=== PATIENT | female | born 1940 | race Caucasian/White ===

== ENCOUNTER → 2016-11-15 | Outpatient (CLI) | payer MEDICARE, BC ==
[~2016-11-15] MED LIST: AMBI5TAB PO; CALC0.25 PO; CALCTAB92 PO; CARV3.12 PO; CYMB30CA PO; DEMA10TA PO; ERGO50000 PO; ESTR.1T TD; GABA600T PO; LIDO5DIS35 TD; LISI2.5T55 PO; MVI PO; SIMV10TA PO; ULTR50TA PO; VITATAB11 PO; [UNRECOGNIZED DRUG - OTHER] PO
[2016-11-15 16:16] LABS: HEMATOCRIT 36.9 % (35.0-46.0); MEAN CELL VOLUME 85.8 FL (80.0-100.0); MEAN CORPUSCULAR HEMOGLOBIN 27.3 PG (27.0-34.0); MEAN CORPUSCULAR HGB CONC 31.8 % (32.0-36.0); PLATELET COUNT 245 TH/MM3 (150-450); RED CELL DISTRIBUTION WIDTH 15.8 % (11.6-17.2); REVIEW FLAG FINAL; WHITE BLOOD COUNT 7.6 TH/MM3 (4.0-11.0)
[2016-11-15 16:19] LABS: BACTERIA, URINE RARE /hpf; BLOOD, URINE NEG (NEG); GLUCOSE,URINE NEG (NEG); KETONE, URINE NEG (NEG); MUCUS URINE FEW /lpf (OCC); NITRITE,URINE NEG (NEG); SQUAMOUS EPITHELIAL CELL URINE 1 /hpf (0-5); URINE COLOR LIGHT-YELLOW (YELLW/STRAW)
[2016-11-15 16:26] LABS: BICARBONATE 27.4 MEQ/L (21.0-32.0); POTASSIUM 4.1 MEQ/L (3.5-5.1)
== END ==
LOC: PLAB 11:19
PROVIDERS: ATTEND Internal Medicine Nephrology
DX: E55.9 Vitamin D deficiency, unspecified (principal); N18.2 Chronic kidney disease, stage 2 (mild)
CPT/HCPCS: 36415; 80069; 81001; 82306; 82570; 83970; 84156; 85027

== ENCOUNTER → 2017-01-17 | Outpatient (CLI) | payer MEDICARE, BC ==
[2017-01-17 13:23] LABS: ANION GAP 9 MEQ/L (5-15); BICARBONATE 24.4 MEQ/L (21.0-32.0); BLOOD UREA NITROGEN 27 MG/DL (7-18); CHLORIDE 111 MEQ/L (98-107); FERRITIN 14 NG/ML (8-252); GLOMERULAR FILTRATION RATE 55 ML/MIN (>89); POTASSIUM 3.6 MEQ/L (3.5-5.1); SODIUM (NA) 144 MEQ/L (136-145); TRANSFERRIN IRON PROFILE 313 MG/DL (200-360); URIC ACID 8.8 MG/DL (2.6-6.0)
[2017-01-17 17:30] LABS: HEMOGLOBIN A1a 1.4 %; HEMOGLOBIN Ao 84.5 %; HEMOGLOBIN LA1C 2.5 %; HEMOGLOBIN P3 5.7 %
== END ==
LOC: PLAB 08:04
DX: E83.51 Hypocalcemia (principal); Z86.39 Personal history of other endocrine, nutritional and metabolic disease
CPT/HCPCS: 36415; 80069; 82306; 82607; 82728; 83036; 83540; 83550; 83970; 84550

== ENCOUNTER 2017-04-26 08:21 | Emergency (ER) | payer MEDICARE, BC ==
[~2017-04-26] VITALS: Ht 162.6 cm; Wt 61.5 kg
[2017-04-26 08:28] VITALS: BP 148/80; PULSE 74; RESP 16; TEMP 98.1; O2SAT 98
[2017-04-26] MEDS ORDERED: GABA600T PO (08:47)
[2017-04-26] MEDS ORDERED: CARV3.12 PO (08:47)
[2017-04-26] MEDS ORDERED: ZOCO10TA PO (08:47)
[2017-04-26] MEDS ORDERED: TORS20TA PO (08:47)
[2017-04-26] MEDS ORDERED: VENL225T PO (08:47)
[2017-04-26] MEDS ORDERED: CITRTAB PO (08:47)
[2017-04-26] MEDS ORDERED: LISI2.5T3 PO (08:47)
[2017-04-26] MEDS ORDERED: ESTR.025T TOPICAL (08:47)
[2017-04-26] MEDS ORDERED: AMBI5TAB PO (08:47)
[2017-04-26] MEDS ORDERED: [UNRECOGNIZED DRUG - OTHER] PO (08:47)
[2017-04-26] MEDS ORDERED: TRAM50TA PO (08:47)
[2017-04-26] MEDS ORDERED: MIRA50TA PO (08:47)
--- NOTE | 2017-04-26 08:59 | PD ---
HPI Chief Complaint: Injury Time Seen by Provider: 08:41 Travel History International Travel<30 days: No Contact w/Intl Traveler<30days: [place] of Country Traveled to: [place] Traveled to known affect area: Yes History of Present Illness HPI Patient 76-year-old female presents with left lower extremity swelling, knee pain, ankle pain for the past 2 days. Patient states that she fell down the stairs in [place] and bent her left leg behind her, she states that she's been having ankle pain and foot pain and knee pain ever since this event. She has been ambulating albeit very gingerly. She also is on been on a long plane flight from [place]. Denies any shortness of breath, she states that her legs have been swelling since the plane flight and she was picked up this morning. Denies any fever denies any chest pain denies any shortness of breath denies any other injuries denies any neck pain or headache. PFSH Past Medical History Anemia: Yes Anxiety: No Depression: Yes Heart Rhythm Problems: No Cardiovascular Problems: Yes High Cholesterol: Yes Chest Pain: No Congestive Heart Failure: No Cerebrovascular Accident: No Diminished Hearing: Yes ([place], HEARING AIDS) Endocrine: No GERD: Yes Genitourinary: Yes (necrosis and urinary incontinence) Hiatal Hernia: Yes Herniated Disk: Yes Hypertension: Yes Musculoskeletal: Yes Neurologic: Yes (neuropathy) Psychiatric: Yes Reproductive: No Respiratory: No Migraines: No Myocardial Infarction: No Renal Failure: Yes Seizures: No ?: Not : 4 Para: 4 Past Surgical History Abdominal Surgery: Yes (GASTRIC DISTAL BYPASS 1991, HERNIA 2011) Body Medical Devices: titanium rods in head, layton in abd. Cholecystectomy: Yes Ear Surgery: No Endocrine Surgery: No Eye Surgery: Yes (BILAT CATARACTS) Genitourinary Surgery: Yes (bladder sling) Hysterectomy: Yes Neurologic Surgery: Yes (CRANIOTOTOMY 2013 WITH TITANIUM) Oral Surgery: Yes Tonsillectomy: Yes Other Surgery: Yes (L5-S1, R KNEE TORN MENISCUS) Family History Family Hypercholesterolemia: Yes Social History Alcohol Use: Yes (very rarely) Tobacco Use: No Substance Use: No Allergies-Medications (Allergen,Severity, Reaction): Coded Allergies: Celebrex (Unverified Allergy, Severe, RENAL FAILURE, 04/26/17) *MDRO Multi-Drug Resistant Organism (Unverified Allergy, Unknown, 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 Actonel (Verified Allergy, Unknown, 04/26/17) Pristiq (Verified Allergy, Unknown, 04/26/17) Reported Meds & Prescriptions Reported Meds & Active Scripts Active Reported Myrbetriq (Mirabegron) 50 Mg Tab 50 Mg PO DAILY Zocor (Simvastatin) 10 Mg Tab 10 Mg PO DAILY Tramadol (Tramadol HCl) 50 Mg Tab 50 Mg PO Q8H PRN Torsemide 20 Mg Tab 20 Mg PO DAILY Carvedilol 3.125 Mg Tab 3.125 Mg PO BID Lisinopril 2.5 Mg Tab 2.5 Mg PO DAILY Venlafaxine ER 24 HR (Venlafaxine HCl) 225 Mg Tab 225 Mg PO DAILY Climara Patch 168 HR (Estradiol) 0.025 Mg/24 Hr Patch 1 Patch TOPICAL Q7D Remove old patch and discard when placing a new patch. Ambien (Zolpidem Tartrate) 5 Mg Tab 5 Mg PO HS PRN Gabapentin 600 Mg Tab 600 Mg PO TID Citracal + Bone Density Tablet (Calcium Crb,Cit/D3/Min34/Luis) 1 Each Tablet 3 Tab PO DAILY Tricitrates Liq (Potassium Citrate-Sod Citrate-Citric Acid Liq) 550-500-334 Mg/ 5 Ml Soln 10 Ml PO DAILY Review of Systems Except as stated in HPI: all other systems reviewed are Neg Physical Exam Narrative GENERAL: Well-developed well-nourished no apparent distress. SKIN: Focused skin assessment warm/dry. HEAD: Atraumatic. Normocephalic. EYES: Pupils equal and round. No scleral icterus. No injection or drainage. ENT: No nasal bleeding or discharge. Mucous membranes pink and moist. NECK: Trachea midline. No JVD. CARDIOVASCULAR: Regular rate and rhythm. No murmur appreciated. RESPIRATORY: No accessory muscle use. Clear to auscultation. Breath sounds equal bilaterally. GASTROINTESTINAL: Abdomen soft, non-tender, nondistended. Hepatic and splenic margins not palpable. MUSCULOSKELETAL: No obvious deformities. No clubbing. No cyanosis. Patient has some pitting edema bilateral lower extremities, worse on the left on the right. From the knees down. Some minimal tenderness over the dorsum of the foot over the first and second metatarsals, there is also some tenderness over the medial malleoli on the left, no tenderness over the knee. Nose midline cervical thoracic or lumbar tenderness. Pelvis stable. NEUROLOGICAL: Awake and alert. No obvious cranial nerve deficits. Motor grossly within normal limits. Normal speech. PSYCHIATRIC: Appropriate mood and affect; insight and judgment normal. Data Data Last Documented VS Vital Signs Date Time Temp Pulse Resp B/P Pulse Ox O2 Delivery O2 Flow Rate FiO2 04/26/17 08:28 98.1 74 16 148/80 98 Orders Us Leg Venous Doppler Bilat (04/26/17 08:41) Foot, Complete ([id number]) (04/26/17 ) Knee, Complete (4vws) (04/26/17 ) Acetaminophen (Tylenol) (04/26/17 10:00) MDM Medical Decision Making Medical Screen Exam Complete: Yes Emergency Medical Condition: Yes Differential Diagnosis Foot pain, ankle pain, knee pain, DVT. Narrative Course Patient roomed emergency department, given Tylenol, DVT studies of both lower extremities are negative, x-rays are negative other than small joint effusion. No indication for imaging of her head or C-spine or any other joint. The patient is ambulatory in emergency department, was placed in an Franc wrap for comfort. Recommended rice therapy and follow-up with her primary care physician. She was grateful, stable for discharge. Diagnosis Primary Impression: Knee sprain Additional Impressions: Ankle sprain Foot contusion Patient Instructions: General Instructions, RICE Therapy (GEN) Disposition: 01 DISCHARGE HOME Condition: Stable Braxton Padgett MD Apr 26, 2017 08:59
--- NOTE | 2017-04-26 09:15 | RADRPT ---
EXAM DATE/TIME: 04/26/2017 08:58 [facility] COMPARISON: No previous studies available for comparison. INDICATIONS : Fall, left posterior knee pain. MEDICAL HISTORY : None. SURGICAL HISTORY : None. ENCOUNTER: Initial ACUITY: 2 days PAIN SCORE: 10/10 LOCATION: Left posterior knee FINDINGS: Four view examination of the left knee demonstrates no evidence of fracture or dislocation. Bony min eralization is normal. The articular surfaces are intact. There is a small right knee effusion. CONCLUSION: Unremarkable examination of the left knee except for small joint effusion. Ezekiel Issa MD on April 26, 2017 at 9:13 Board Certified Radiologist. This report was verified electronically.
--- NOTE | 2017-04-26 09:16 | RADRPT ---
EXAM DATE/TIME: 04/26/2017 09:00 [facility] COMPARISON: No previous studies available for comparison. INDICATIONS : Fall, left foot pain and swelling. MEDICAL HISTORY : None. SURGICAL HISTORY : None. ENCOUNTER: Initial ACUITY: 2 days PAIN SCORE: 10/10 LOCATION: Left enitre foot FINDINGS: Three view examination of the left foot demonstrates no soft tissue swelling, dislocation, or fractur e. The tarsal bones appear intact. The interphalangeal and metatarsophalangeal joints are intact. The calcaneus is intact. Bony mineralization is normal. CONCLUSION: Unremarkable examination of the left foot. Ezekiel Issa MD on April 26, 2017 at 9:14 Board Certified Radiologist. This report was verified electronically.
--- NOTE | 2017-04-26 09:50 | RADRPT ---
EXAM DATE/TIME: 04/26/2017 09:27 [facility] COMPARISON: No previous studies available for comparison. INDICATIONS : Bilateral leg swelling and pain. Fall two days ago. Long flight last night. MEDICAL HISTORY : Hypercholesterolemia. Hypertension. Gastroesophageal reflux disease. Hiatal hernia. Renal failure. Os teoporosis. Herniated disks. Anemia. Measles. SURGICAL HISTORY : Tonsillectomy.Hysterectomy. Rotator cuff, right.Craniotomy. Gastric distal bypass. Left meniscus repa ir. ENCOUNTER: Initial ACUITY: 2 day PAIN SCORE: 10/10 LOCATION: Bilateral leg. TECHNIQUE: Venous ultrasound of the left and right leg was performed from the inguinal ligament to the proximal calf. Real-time, color Doppler and spectral tracing, compression and augmentation techniques were us ed. FINDINGS: RIGHT LEG: There is normal compressibility of the deep venous system from the inguinal region to the proximal ca lf. No echogenic clot is seen in the lumen of the common femoral, femoral, popliteal, and posterior tibial veins. There is a normal response of the venous system to proximal and distal augmentation an d respiration. LEFT LEG: There is normal compressibility of the deep venous system from the inguinal region to the proximal ca lf. No echogenic clot is seen in the lumen of the common femoral, femoral, popliteal, and posterior tibial veins. There is a normal response of the venous system to proximal and distal augmentation an d respiration. CONCLUSION: Normal examination. Ezekiel Issa MD on April 26, 2017 at 9:49 Board Certified Radiologist. This report was verified electronically.
[2017-04-26] MEDS ORDERED: ACETAMINOPHEN 500 MG CPLT PO ONE (10:00)
== END 2017-04-26 10:15 | disposition home or self-care (01) ==
LOC: PHEFT 08:21
DX: S83.92XA Sprain of unspecified site of left knee, initial encounter (principal); S93.402A Sprain of unspecified ligament of left ankle, initial encounter; S90.32XA Contusion of left foot, initial encounter; I10 Essential (primary) hypertension; W10.9XXA Fall (on) (from) unspecified stairs and steps, initial encounter
CPT/HCPCS: 73564; 73630; 93970

== ENCOUNTER 2017-04-28 07:34 | Inpatient (IN) | payer MEDICARE, BC ==
[~2017-04-28 07:34] MED LIST changes: -CALC0.25 PO; -CALCTAB92 PO; +CITRTAB PO; -CYMB30CA PO; -DEMA10TA PO; -ERGO50000 PO; +ESTR.025T TOPICAL; -ESTR.1T TD; -LIDO5DIS35 TD; +LISI2.5T3 PO; -LISI2.5T55 PO; +MIRA50TA PO; -MVI PO; -SIMV10TA PO; +TORS20TA PO; +TRAM50TA PO; -ULTR50TA PO; +VENL225T PO; -VITATAB11 PO; +ZOCO10TA PO; +[UNRECOGNIZED DRUG - OTHER] PO; -[UNRECOGNIZED DRUG - OTHER] PO
[2017-04-28 07:40] VITALS: BP 116/60; PULSE 82; RESP 20; TEMP 98.7; O2SAT 95
[2017-04-28 08:27] LABS: AUTOMATED NEUTROPHIL # 7.5 TH/MM3 (1.8-7.7); BASOPHIL # 0.1 TH/MM3 (0-0.2); BASOPHIL % 0.6 % (0.0-2.0); EOSINOPHIL # 0.1 TH/MM3 (0-0.4); EOSINOPHIL % 0.8 % (0.0-4.0); HEMATOCRIT 33.6 % (35.0-46.0); HEMO FLAGS DIFF FINAL; LYMPH % 13.7 % (9.0-44.0); LYMPHOCYTE # 1.4 TH/MM3 (1.0-4.8); MEAN CORPUSCULAR HEMOGLOBIN 27.7 PG (27.0-34.0); MEAN CORPUSCULAR HGB CONC 31.1 % (32.0-36.0); MONO % 10.9 % (0.0-8.0); PLATELET COUNT 207 TH/MM3 (150-450); RED BLOOD COUNT 3.77 MIL/MM3 (4.00-5.30); RED CELL DISTRIBUTION WIDTH 15.2 % (11.6-17.2); WHITE BLOOD COUNT 10.1 TH/MM3 (4.0-11.0)
[2017-04-28 08:36] LABS: INTERNATIONAL NORMALIZED RATIO 0.9 RATIO; PROTHROMBIN TIME - PATIENT 10.1 SEC (9.8-11.6)
--- NOTE | 2017-04-28 08:36 | RADRPT ---
EXAM DATE/TIME: 04/28/2017 08:20 [facility] COMPARISON: No previous studies available for comparison. INDICATIONS : Trauma, fall this morning. RADIATION DOSE: 27.29 CTDIvol (mGy) MEDICAL HISTORY : Hypertension. SURGICAL HISTORY : Craniotomy. Meningioma removed ENCOUNTER: Initial ACUITY: 1 day PAIN SCALE: 0/10 LOCATION: cranial TECHNIQUE: Multiple contiguous axial images were obtained of the head. Using automated exposure control and adj ustment of the mA and/or kV according to patient size, radiation dose was kept as low as reasonably a chievable to obtain optimal diagnostic quality images. DICOM format image data is available electro nically for review and comparison. FINDINGS: CEREBRUM: Encephalomalacia left frontal lobe. The ventricles are normal for age. No evidence of midline shift, mass lesion, hemorrhage or acute infarction. No extra-axial fluid collections are seen. POSTERIOR FOSSA: The cerebellum and brainstem are intact. The 4th ventricle is midline. The cerebellopontine angle i s unremarkable. EXTRACRANIAL: The visualized portion of the orbits is intact. SKULL: The calvaria is intact. Status post craniotomy on the left. No evidence of skull fracture. CONCLUSION: 1. Encephalomalacia left frontal lobe and previous craniotomy. 2. No acute intracranial abnormality. Martin Alvarado MD on April 28, 2017 at 8:33 Board Certified Radiologist. This report was verified electronically.
[2017-04-28 08:37] LABS: APTT (PATIENT) 23.3 SEC (24.3-30.1)
--- NOTE | 2017-04-28 08:44 | PD ---
HPI Chief Complaint: Injury Time Seen by Provider: 07:54 Travel History International Travel<30 days: No Contact w/Intl Traveler<30days: No Traveled to known affect area: No History of Present Illness HPI 76yo F with PMH of peripheral neuropathy presents to the ED with c/o left wrist pain s/p mechanical fall today. 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 However, she lost balance and fell and hit her left head on the dresser as well as her left wrist. Denies any LOC. Denies any headache, anticoagulation, chest pain, sob, n/v, abdominal pain, focal weakness or numbness. 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 Cholecystectomy: Yes Ear Surgery: No Endocrine Surgery: No Eye Surgery: Yes (BILAT CATARACTS) Genitourinary Surgery: Yes (bladder sling) Hysterectomy: Yes Neurologic Surgery: Yes (CRANIOTOTOMY 2013 WITH TITANIUM) Oral Surgery: Yes Tonsillectomy: Yes Other Surgery: Yes (L5-S1, R KNEE TORN MENISCUS) Family History Family Hypercholesterolemia: Yes Social History Alcohol Use: Yes (very rarely) Tobacco Use: No Substance Use: No Allergies-Medications (Allergen,Severity, Reaction): Coded Allergies: Celebrex (Unverified Allergy, Severe, RENAL FAILURE, 04/26/17) *MDRO Multi-Drug Resistant Organism (Unverified Allergy, Unknown, 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 Actonel (Verified Allergy, Unknown, 04/26/17) Pristiq (Verified Allergy, Unknown, 04/26/17) Reported Meds & Prescriptions Reported Meds & Active Scripts Active Reported Centrum Silver Adult 50+ (Multiple Vitamins W/ Minerals) 1 Tab Tab 1 Tab PO DAILY B Complex (B-Complex W/ Folic Acid) 1 Tab 1 Tab PO DAILY Selenium (Selenomethionine) 200 Mcg Tablet Unknown Dose PO DAILY Zinc (Zinc Gluconate) 50 Mg Tab Unknown Dose PO DAILY Ergocalciferol 50,000 Unit Cap 150,000 Units PO DAILY Myrbetriq (Mirabegron) 50 Mg Tab 50 Mg PO DAILY Zocor (Simvastatin) 10 Mg Tab 10 Mg PO DAILY Tramadol (Tramadol HCl) 50 Mg Tab 100 Mg PO BID Torsemide 20 Mg Tab 20 Mg PO DAILY Carvedilol 3.125 Mg Tab 3.125 Mg PO BID Lisinopril 2.5 Mg Tab 2.5 Mg PO DAILY Venlafaxine ER 24 HR (Venlafaxine HCl) 225 Mg Tab 225 Mg PO DAILY Climara Patch 168 HR (Estradiol) 0.025 Mg/24 Hr Patch 1 Patch TOPICAL Q7D Remove old patch and discard when placing a new patch. Ambien (Zolpidem Tartrate) 5 Mg Tab 5 Mg PO HS PRN Gabapentin 600 Mg Tab 600 Mg PO TID Citracal + Bone Density Tablet (Calcium Crb,Cit/D3/Min34/Luis) 1 Each Tablet 1 Tab PO TID Tricitrates Liq (Potassium Citrate-Sod Citrate-Citric Acid Liq) 550-500-334 Mg/ 5 Ml Soln 10 Ml PO DAILY Review of Systems Except as stated in HPI: all other systems reviewed are Neg Physical Exam Narrative GENERAL: 76yo F in mild distress. SKIN: Focused skin assessment warm/dry. HEAD: +Ecchymoses and swelling in left eyebrow. EYES: Pupils equal and round. No scleral icterus. No injection or drainage. ENT: No nasal bleeding or discharge. Mucous membranes pink and moist. NECK: Trachea midline. No JVD. CARDIOVASCULAR: Regular rate and rhythm. No murmur appreciated. RESPIRATORY: No accessory muscle use. Clear to auscultation. Breath sounds equal bilaterally. GASTROINTESTINAL: Abdomen soft, non-tender, nondistended. MUSCULOSKELETAL: Left wrist:+Swelling distal radius on dorsal aspect. Radial pulse 2+. Sensation intact. Able to move all digits. NEUROLOGICAL: Awake and alert. No obvious cranial nerve deficits. Motor grossly within normal limits. Normal speech. PSYCHIATRIC: Appropriate mood and affect; insight and judgment normal. Data Data Last Documented VS Vital Signs Date Time Temp Pulse Resp B/P Pulse Ox O2 Delivery O2 Flow Rate FiO2 04/28/17 11:15 100 Nasal Cannula 3.00 04/28/17 10:45 69 14 138/70 04/28/17 07:[address] Brain W/O Iv Contrast(Rout) (04/28/17 ) Ct Cerv Spine W/O Contrast (04/28/17 ) Ct Facial Bones W/O Iv Cont (04/28/17 ) Wrist, Limited (Ap&Lat) (04/28/17 ) Hand, Limited (2vws) (04/28/17 ) Complete Blood Count With Diff (04/28/17 08:01) Basic Metabolic Panel (Bmp) (04/28/17 08:01) Prothrombin Time / Inr (Pt) (04/28/17 08:01) Act Partial Throm Time (Ptt) (04/28/17 08:01) Type And Screen (04/28/17 08:01) Morphine Inj (Morphine Inj) (04/28/17 08:45) Propofol 500 Mg/50 Ml Inj (Diprivan 500 (04/28/17 09:45) AGID (04/28/17 08:13) Red Blood Cells (Rbc) (04/28/17 08:13) Wrist, Limited (Ap&Lat) (04/28/17 ) Fiberglass Sugartong Sp Ad Arm (04/28/17 ) Sling Cradle Arm (04/28/17 ) Admit To Inpatient (04/28/17 ) Vital Signs (Adult) Q4H (04/28/17 12:47) Activity Oob With Assistance (04/28/17 12:47) Diet Regular Basic (04/28/17 Lunch) Lactated Ringer's 1000 Ml Inj (Lr 1000 M (04/28/17 13:00) Sodium Chloride 0.9% Flush (Ns Flush) (04/28/17 13:00) Sodium Chloride 0.9% Flush (Ns Flush) (04/28/17 21:00) Ondansetron Inj (Zofran Inj) (04/28/17 13:00) Basic Metabolic Panel (Bmp) (04/29/17 06:00) Complete Blood Count With Diff (04/29/17 06:00) Heparin Inj (Heparin Inj) (04/30/17 09:00) Naloxone Inj (Narcan Inj) (04/28/17 13:00) Docusate Sodium-Senna (Sara-Colace) (04/28/17 21:00) Magnesium Hydroxide Liq (Milk Of Magnesi (04/28/17 13:00) Sennosides (Senokot) (04/28/17 13:00) Bisacodyl Supp (Dulcolax Supp) (04/28/17 13:00) Lactulose Liq (Lactulose Liq) (04/28/17 13:00) Inpatient Certification (04/28/17 ) Consult Orthopedic (04/28/17 ) Morphine Inj (Morphine Inj) (04/28/17 13:00) Admit Order (Ed Use Only) (04/28/17 12:50) Labs Laboratory Tests Test 04/28/17 04/28/17 04/28/17 08:13 09:51 10:39 White Blood Count 10.1 TH/MM3 Red Blood Count 3.77 MIL/MM3 Hemoglobin 10.5 GM/DL Hematocrit 33.6 % Mean Corpuscular Volume 89.0 FL Mean Corpuscular Hemoglobin 27.7 PG Mean Corpuscular Hemoglobin 31.1 % Concent Red Cell Distribution Width 15.2 % Platelet Count 207 TH/MM3 Mean Platelet Volume 9.4 FL Neutrophils (%) (Auto) 74.0 % Lymphocytes (%) (Auto) 13.7 % Monocytes (%) (Auto) 10.9 % Eosinophils (%) (Auto) 0.8 % Basophils (%) (Auto) 0.6 % Neutrophils # (Auto) 7.5 TH/MM3 Lymphocytes # (Auto) 1.4 TH/MM3 Monocytes # (Auto) 1.1 TH/MM3 Eosinophils # (Auto) 0.1 TH/MM3 Basophils # (Auto) 0.1 TH/MM3 CBC Comment DIFF FINAL Differential Comment Prothrombin Time 10.1 SEC Prothromb Time International 0.9 RATIO Ratio Activated Partial 23.3 SEC Thromboplast Time Sodium Level 140 MEQ/L Potassium Level 4.1 MEQ/L Chloride Level 107 MEQ/L Carbon Dioxide Level 24.8 MEQ/L Anion Gap 8 MEQ/L Blood Urea Nitrogen 23 MG/DL Creatinine 1.17 MG/DL Estimat Glomerular Filtration 45 ML/MIN Rate Random Glucose 124 MG/DL Calcium Level 8.3 MG/DL Blood Type A POSITIVE A POSITIVE Antibody Screen POSITIVE Antigen Identification E Antigen - NEGATIVE Crossmatch Leukocyte-Reduced Red Blood Cells Blood Bank Comment Antibody Identification Anti-E MDM Medical Decision Making Medical Screen Exam Complete: Yes Emergency Medical Condition: Yes Differential Diagnosis Fracture vs. contusion vs. dislocation Narrative Course 76yo F with left wrist pain s/p mechanical fall today. Pt had recently had left ankle sprain s/p work up at [facility] with negative xray and US. Pt denies any LOC. Has ecchymoses in left eyebrow. CT brain showed previous craniotomy. No acute intracranial abnormality. CT cspine showed degenerative changes. CT facial: left periorbital/facial soft tissue swelling. No facial fractures. No fracture. Xray left hand and wrist showed distal radius and ulnar fracture with posterior displacement. Reduction performed under procedural sedation. Post reduction xray showed improvement in alignment of radial and ulna fractures. Discussed with irrigationist designer orthopedic surgeon Dr. Medrano and he recommends admission to medicine and Dr. Lujan will take her to surgery tomorrow. Discussed with hospitalist and accepted to their service. Orthopedic consult placed. Procedures Procedure Narrative After the risks and benefits were discussed the following procedure was performed: MODERATE SEDATION: The patient was placed on a cafeteria monitor and pulse oximetry. An ambu bag and suction was immediately available at bedside. The patient was monitored by the nurse. Oxygen saturation , heart rate and blood pressure were monitored. Procedural sedation was acheived using 50mg of propofol. The patient was observed until awake and alert. Procedural Sedation time in attendance was 25 minutes. Diagnosis Primary Impression: Distal radius fracture, left Qualified Code: S52.502A - Closed fracture of distal end of left radius, unspecified fracture morphology, initial encounter Admitting Information Admitting Physician Requests: Admit Scripts Hydrocodone-Acetaminophen ([place])7.5-325 mg Tab1 Tab PO Q4H PRN (PAIN) #50 TAB Ref 0 Prov:Genaro Lujan MD 04/29/17 Hydrocodone-Acetaminophen 7.5-325 mg Tab1 Tab PO Q4H #60 TAB Ref 0 Prov:Gilberto Arce 04/29/17 Tonia Moon DO Apr 28, 2017 08:44
[2017-04-28] MEDS ORDERED: MORPHINE SULFATE 4 MG/ML INJ IV PUSH ONE (08:45)
--- NOTE | 2017-04-28 08:45 | RADRPT ---
EXAM DATE/TIME: 04/28/2017 08:46 [facility] COMPARISON: No previous studies available for comparison. INDICATIONS : Patient fell this am on left hand and wrist. MEDICAL HISTORY : None. SURGICAL HISTORY : None. ENCOUNTER: Initial ACUITY: 1 day PAIN SCORE: 10/10 LOCATION: Left upper extremity FINDINGS: Two view examination of the left hand demonstrates extensive soft tissue swelling. Fractures of the d istal radius and ulna. Posterior displacement of distal components. Comminution of fracture fragments . CONCLUSION: Distal radius and ulnar fractures with posterior displacement. Martin Alvarado MD on April 28, 2017 at 8:42 Board Certified Radiologist. This report was verified electronically.
--- NOTE | 2017-04-28 08:48 | RADRPT ---
EXAM DATE/TIME: 04/28/2017 08:20 [facility] COMPARISON: No previous studies available for comparison. INDICATIONS : Trauma, fall. RADIATION DOSE: 14.11 CTDIvol (mGy) MEDICAL HISTORY : Hypertension. SURGICAL HISTORY : None. ENCOUNTER: Initial ACUITY: 1 day PAIN SCALE: 6/10 LOCATION: neck TECHNIQUE: Volumetric scanning of the cervical spine was performed. Multiplanar reconstructions in the sagittal, coronal and oblique axial planes were performed. Using automated exposure control and adjustment o f the mA and/or kV according to patient size, radiation dose was kept as low as reasonably achievable to obtain optimal diagnostic quality images. DICOM format image data is available electronically f or review and comparison. FINDINGS: VERTEBRAE: Normal vertebral body height. Multilevel degenerative changes. ALIGNMENT: No evidence of subluxation. Levoscoliosis. C2-C3: The bony spinal canal is normal in size. No evidence of disc bulge or herniation. The neural forami na are bilaterally patent. C3-C4: Small posterior disc osteophyte complex without canal stenosis. The neural foramina are bilaterally patent. C4-C5: The bony spinal canal is normal in size. No evidence of disc bulge or herniation. The neural forami na are bilaterally patent. C5-C6: The bony spinal canal is normal in size. No evidence of disc bulge or herniation. The neural forami na are bilaterally patent. C6-C7: The bony spinal canal is normal in size. No evidence of disc bulge or herniation. The neural forami na are bilaterally patent. C7-T1: The bony spinal canal is normal in size. No evidence of disc bulge or herniation. The neural forami na are bilaterally patent. CONCLUSION: 1. Multilevel degenerative changes. 2. No fracture. Martin Alvarado MD on April 28, 2017 at 8:43 Board Certified Radiologist. This report was verified electronically.
--- NOTE | 2017-04-28 08:49 | RADRPT ---
EXAM DATE/TIME: 04/28/2017 08:20 [facility] COMPARISON: No previous studies available for comparison. INDICATIONS : Trauma, fall today. Left sided facial trauma. RADIATION DOSE: 56.80 CTDIvol (mGy) MEDICAL HISTORY : Hypertension. SURGICAL HISTORY : None. ENCOUNTER: Initial ACUITY: 1 day PAIN SCORE: 4/10 LOCATION: Left facial TECHNIQUE: Volumetric scanning of the facial bones was performed. Using automated exposure control and adjustme nt of the mA and/or kV according to patient size, radiation dose was kept as low as reasonably achiev able to obtain optimal diagnostic quality images. DICOM format image data is available electronicall y for review and comparison. FINDINGS: ORBITS: The orbital and infraorbital osseous structures are intact. The retroconal structures have a normal configuration. No radiopaque foreign bodies are seen. NASAL BONE: The nasal bone and maxillary spine are intact ZYGOMATIC ARCHES: Symmetric without evidence of fracture. SINUSES: The maxillary, ethmoid and frontal sinuses are intact. No air-fluid levels seen. NASAL CAVITY: The nasal septum is intact and midline. The lacrimal ducts are intact. SOFT TISSUES: No radiopaque foreign bodies seen. Left-sided soft-tissue swelling is seen. INTRACRANIAL: No intracranial air seen. CRIBIFORM PLATE: Grossly intact. CONCLUSION: 1. Left periorbital/facial soft tissue swelling. 2. No facial fractures. Martin Alvarado MD on April 28, 2017 at 8:46 Board Certified Radiologist. This report was verified electronically.
[2017-04-28 08:54] LABS: BICARBONATE 24.8 MEQ/L (21.0-32.0); POTASSIUM 4.1 MEQ/L (3.5-5.1)
--- NOTE | 2017-04-28 09:00 | RADRPT ---
EXAM DATE/TIME: 04/28/2017 08:46 [facility] COMPARISON: No previous studies available for comparison. INDICATIONS : Patient fell this am on left hand and wrist MEDICAL HISTORY : None. SURGICAL HISTORY : None. ENCOUNTER: Initial ACUITY: 1 day PAIN SCORE: 10/10 LOCATION: Left upper extremity FINDINGS: Two view examination left wrist demonstrates there are oblique fractures of the distal radius and uln a. Patient is osteopenic. Both fractures are angled anteriorly. There is mild commniution of the r adial fracture. I do not believe the articulating surface is involved. Carpal bones are unremarkabl e. CONCLUSION: Radius and ulna fracture as above. Ezekiel Issa MD on April 28, 2017 at 8:51 Board Certified Radiologist. This report was verified electronically.
[2017-04-28] MEDS ORDERED: PROPOFOL 500 MG/50 ML BTL IV ONE (09:45)
--- NOTE | 2017-04-28 10:27 | RADRPT ---
EXAM DATE/TIME: 04/28/2017 10:04 [facility] COMPARISON: WRIST LEFT LIMITED (AP & LAT), April 28, 2017, 8:46. INDICATIONS : Post reduction left wrist. MEDICAL HISTORY : None. SURGICAL HISTORY : None. ENCOUNTER: Subsequent ACUITY: 1 day PAIN SCORE: 3/10 LOCATION: Left upper extremity FINDINGS: Two view examination of the left wrist demonstrates placement of a cast. Status post reduction with b pablito alignment of fracture fragments of the distal radius and ulna. Comminuted fracture fragments ar e seen. CONCLUSION: Improvement in alignment of distal radius and ulnar fractures. Martin Alvarado MD on April 28, 2017 at 10:25 Board Certified Radiologist. This report was verified electronically.
[2017-04-28 10:45] VITALS: BP_SYST 132; BP_SYST 138; BP_DIAS 60; BP_DIAS 70; PULSE 68; RESP 14
[2017-04-28 11:15] VITALS: O2SAT 100
[2017-04-28] MEDS ORDERED: ONDANSETRON HCL 4 MG/2 ML VIAL IVP PRN (13:00)
[2017-04-28] MEDS ORDERED: NALOXONE HCL 0.4 MG/ML AMP IV PRN (13:00)
[2017-04-28] MEDS ORDERED: LACTULOSE SYRUP 20 GM/30 ML CUP PO PRN (13:00)
[2017-04-28] MEDS ORDERED: MAGNESIUM HYDROXIDE SUSP 30 ML CUP PO PRN (13:00)
[2017-04-28] MEDS ORDERED: SODIUM CHLORIDE 0.9% FLUSH 10 ML FLUSH IV FLUSH PRN (13:00)
[2017-04-28] MEDS ORDERED: BISACODYL 10 MG SUPP RECTAL PRN (13:00)
[2017-04-28] MEDS ORDERED: SENNOSIDES 8.6 MG TAB PO PRN (13:00)
[2017-04-28 14:00] VITALS: BP 141/66; PULSE 15
[2017-04-28] MEDS: LACTATED RINGER'S 1000 ML INJ 1,000 ML IV SCH (14:35)
[2017-04-28] MEDS: MORPHINE SULFATE 4 MG/ML INJ IV PUSH PRN ×4 (14:40→23:50)
[2017-04-28] MEDS: PANTOPRAZOLE SOD 40 MG DELAYED RELEASE TAB PO SCH (15:00)
[2017-04-28] MEDS ORDERED: ERGO1CAP30 PO (15:32)
[2017-04-28] MEDS ORDERED: MULT1TAB PO (15:37)
[2017-04-28] MEDS ORDERED: SELE200T8 PO (15:37)
[2017-04-28] MEDS ORDERED: CHEL50TA PO (15:37)
[2017-04-28] MEDS ORDERED: B COTAB3 PO (15:37)
[2017-04-28 16:05] VITALS: BP 126/63; PULSE 86; RESP 18; TEMP 97.3; O2SAT 99
--- NOTE | 2017-04-28 17:34 | MH ---
cc: SRIDEVI ALMAZAN MD DATE OF ADMISSION: 04/28/2017 DATE OF : 1940 CHIEF COMPLAINT Fall with left wrist and arm injury. TRAVEL IN THE LAST 30 DAYS Yes. Non-international. HISTORY OF PRESENT ILLNESS This is a is a pleasant 76-year-old white female who had just recently returned from a trip and was resting in her bed, she got up approximately 04:00 a.m. to go feed her animal. When she leaned over to reach for her dog's bowl she lost her balance and slipped on her floor, she landed on her right arm and right wrist which immediately started to have pain and swelling. The patient also notes a recent left ankle sprain which still shows some 1+ edema generalized over the left lower extremity. The patient called her sister to tell her about her recent fall and was brought to the emergency room for further evaluation. The patient denies any dizziness, no syncopal episode, states that it was a slip on her floor. She denies any chest pain, no shortness of breath. She does state a mild headache which has been off and on for the past few days. She also notes a possible mild fever approximately two days ago. She did not check her temperature but was awakened with diaphoresis, states that she got up changed her clothes and went back to bed. PAST MEDICAL HISTORY 1. Anemia. 2. Depression. 3. Cardiovascular disease. 4. Hyperlipidemia. 5. Hard of hearing, does wear hearing aids. 6. Gastroesophageal reflux disease. 7. Necrosis. 8. Urinary incontinence. 9. Stress incontinence. 10. 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 11. Renal insufficiency. 12. Renal failure. PAST SURGICAL HISTORY 1. Gastric distal bypass in 1991. 2. Hernia repair in 2011. 3. She does have layton in her abdomen and titanium rods in her head. 4. Cholecystectomy. 5. Bilateral cataracts. 6. Bladder sling. 7. Craniotomy in 2013. 8. L5-S1. 9. Surgical repair of right knee torn meniscus. 10. Oral surgery. 11. Tonsillectomy. ALLERGIES MDRO, ESBL E.COLI IN 2014, CELEBREX, ACTONEL, PRISTIQ. REPORTED MEDICATIONS 1. Simvastatin. 2. Tramadol. 3. Lasix. 4. Coreg. 5. Lisinopril. 6. Mirabegron. 7. Climara patch. 8. Venlafaxine. 9. Ambien. 10. Gabapentin. 11. Calcium. 12. Sodium citrate. SOCIAL HISTORY No tobacco. No illicit drugs. Rate social alcohol. FAMILY HISTORY Hyperlipidemia. REVIEW OF SYSTEMS A 12-point review was obtained, positives noted in HPI which revolve around her fall with injury and fracture to the left wrist and left arm. Degenerative disc disease noted in her x-rays. Anemia. Acute kidney injury with chronic kidney disease. Stress incontinence. Other systems negative or unremarkable unless already mentioned. PHYSICAL EXAMINATION VITAL SIGNS: Temperature is 98.7, pulse 82, respirations 20, blood pressure 116/60, O2 sat 95-100 on nasal cannula 02 at 3 liters. GENERAL: Obese, elderly, well-nourished white female, looks to be her stated age resting in the bed, she is awake, answers questions appropriately. She is a fair historian. SKIN: Skin is pale, pink mucous membranes, warm and dry. HEAD, EYES, EARS, NOSE AND THROAT: Atraumatic, normocephalic. PERRLA at 2. Mucous membranes slightly dry. No exudate. NECK: Neck is supple. CARDIOVASCULAR: S1, S2. Systolic murmur grade 3/6 noted on the left chest. She has no edema in her right leg. She has 1+ edema in her left lower extremity secondary to a recent sprain. No obvious deformities. Lower extremities are warm to touch. LUNGS: Essentially clear anteriorly and posteriorly with no wheezes, rales or rhonchi. ABDOMEN: Abdomen is round, soft, nontender, nondistended. Active bowel sounds. GENITOURINARY: Deferred. MUSCULOSKELETAL: No obvious deformities. Moves her extremities with purpose. Limited motion in her right arm and right wrist secondary to her recent fracture and fall. She can move her fingers and they are warm to touch. NEUROLOGIC: She is awake, alert, answers questions appropriately. She is a fair historian. Some of her information and questions have been answered by her sister who is present with her. Speech is clear. Tongue is midline. She has good precision filer hand in her right arm. PSYCHIATRIC: Mood and affect are appropriate. Mild anxiety over current condition. DIAGNOSTIC DATA WBC count 10.1, RBC 3.77, hemoglobin 10.5, hematocrit 33.6, neutrophil percentage auto 74, monocytes 10.9, eosinophils 0.8. Chemistries: Sodium 140, potassium 4.1, chloride 107, carbon dioxide 24.8, anion gap 8, BUN 23, creatinine 1.17, GFR 45, random glucose 124, calcium 8.3. PT/INR is 0.9. IMAGING STUDIES Imaging studies show her cervical spine CT to have multilevel degenerative changes but no fracture. Hand x-ray: Distal radius and ulna fractures with posterior displacement. Head CT: Encephalomalacia left frontal lobe and previous craniotomy. No other acute intracranial abnormality. Periorbital/facial soft tissue swelling but no fractures noted. Wrist: Positive for radius and ulna fracture. A followup x-ray was done with improvement in alignment of her distal radius and ulna fractures. ASSESSMENT AND PLAN 1. Fall at home. 2. Left radius and left ulna fracture. 3. Hypertension. 4. Degenerative disc disease. 5. Recent left ankle sprain. 6. Neuropathy in the presence of non-diabetic. 7. Debility. 8. Anemia. We will monitor. 9. Acute kidney injury in the presence of chronic kidney disease. 10. Hard of hearing. 11. History of stress urinary incontinence. PLAN 1. Admit inpatient status. 2. We will monitor her vital signs q.4 and as needed. 3. Activity can be out of bed but only with assistance for her safety. 4. Regular basic diet today; n.p.o. at midnight. 5. Plan for surgery in the morning. 6. Orthopedic consult has been initiated, we appreciate his input. 7. IV hydration with caution. 8. P.r.n. meds for pain management, bowel regimen, nausea. 9. DVT prophylaxis with heparin. PUD prophylaxis with Protonix. 10. We will monitor her labs and follow her needs. The patient's course of treatment will be dependent on her response to treatment and medical needs. The patient's left arm and wrist have been immobilized. To my knowledge, the patient is FULL CODE/FULL AGGRESSIVE CARE. She has the support of family members who work here at [facility] and we will continue to follow. DICTATED BY: Marivel Bell NP MD MEENU Duarte/SERGIO /2:11 PM /4:38 PM seen, examined by myself, Dr Almazan, today Discussed with patient Discussed with emergency physician Left distal ulna and radius fracture Pain control Surgery tomorrow Postoperative DVT prophylaxis For current recent falls She is on several medications that promote falls Including high-dose tramadol , high-dose gabapentin also on Ambien Tramadol dose reduced Discussed with mid level provider The exam, history, and the medical decision-making described in the above note were completed with the assistance of the mid-level provider. I reviewed the findings presented. I attest that I had a [id number] encounter with the patient on the same day, and personally performed and documented my assessment and findings in the medical record. RODRICK
[2017-04-28 19:00] VITALS: BP 122/68; PULSE 75; RESP 16; TEMP 96.6; O2SAT 99
[2017-04-28] MEDS ORDERED: ZOLPIDEM TARTRATE 5 MG TAB PO PRN (19:00)
[2017-04-28] MEDS ORDERED: traMADol HCL 50 MG TAB PO PRN (19:00)
[2017-04-28] MEDS ORDERED: ESTRADIOL 0.025 MG/24 HR PATCH TOPICAL SCH (20:00)
[2017-04-28] MEDS: CARVEDILOL 3.125 MG TAB PO SCH (21:36)
[2017-04-28] MEDS: DOCUSATE SODIUM 50 MG/SENNA 8.6 MG TAB PO SCH (21:36)
[2017-04-28] MEDS: SODIUM CHLORIDE 0.9% FLUSH 10 ML FLUSH IV FLUSH SCH (21:37)
[2017-04-29] VITALS (7 sets, daily range): BP systolic 110–154; BP diastolic 61–75; PULSE 69–79; RESP 16–18; TEMP 95.8–98.8; O2SAT 93–99
[2017-04-29] MEDS: MORPHINE SULFATE 4 MG/ML INJ IV PUSH PRN ×2 (03:07→06:45)
[2017-04-29] MEDS ORDERED: CHLORHEXIDINE GLUCONATE 2 % 1 PACK (2 CLOTHS) TOPICAL PRN (04:45)
[2017-04-29] MEDS ORDERED: LACTATED RINGER'S 1000 ML IV PRN (04:45)
[2017-04-29] MEDS ORDERED: SODIUM CHLORID 0.9% 500 ML IV PRN (04:45)
[2017-04-29] MEDS ORDERED: POVIDONE IODINE 5% (ANTISEPSIS KIT) 4 APPLICATIONS EACH NARE PRN (04:45)
[2017-04-29] MEDS ORDERED: INSULIN HUMAN REGULAR 1,000 UNITS/10 ML VIAL SQ PRN (04:45)
[2017-04-29] MEDS ORDERED: HYDR-3580 PO (06:37)
--- NOTE | 2017-04-29 06:38 | PD.ORT.PN ---
Subjective Subjective Remarks s/p fall at home. left wrist pain. reports left knee and ankle pain from a fall tuesday where she sprained her knee and ankle. Objective Vitals Vital Signs Date Time Temp Pulse Resp B/P Pulse Ox O2 Delivery O2 Flow Rate FiO2 04/29/17 04:00 97.4 76 16 136/66 99 04/29/17 00:00 98.8 79 16 128/71 94 04/28/17 19:00 96.6 75 16 122/68 99 04/28/17 16:05 97.3 86 18 126/63 99 04/28/17 15:00 14 04/28/17 14:00 15 141/66 04/28/17 11:15 100 Nasal Cannula 3.00 04/28/17 10:45 69 14 138/70 97 04/28/17 10:45 68 14 132/60 04/28/17 09:30 14 04/28/17 07:40 98.7 82 20 116/60 95 I/O 04/28/17 04/28/17 04/28/17 04/29/17 04/29/17 04/29/17 07:00 15:00 23:00 07:00 15:00 23:00 Intake Total 480 ml 480 ml Balance 480 ml 480 ml Intake Oral 480 ml 480 ml # Voids 3 3 # Bowel Movements 0 0 Result Diagram: 04/28/17 0813 04/28/17 0813 Other Results Laboratory Tests Test 04/28/17 08:13 Prothrombin Time 10.1 SEC (9.8-11.6) Prothromb Time International 0.9 RATIO Ratio Objective Remarks LUE: +sugar tong splint. intact. NVI. good motion of fingers Assessment & Plan Assessment and Plan 1) Left Distal Radius Fx -npo -consents -surgery today Gilberto Arce Apr 29, 2017 06:38
[2017-04-29 06:59] LABS: AUTOMATED NEUTROPHIL # 3.6 TH/MM3 (1.8-7.7); BASOPHIL % 0.7 % (0.0-2.0); EOSINOPHIL # 0.2 TH/MM3 (0-0.4); EOSINOPHIL % 2.9 % (0.0-4.0); HEMATOCRIT 31.5 % (35.0-46.0); HEMO FLAGS DIFF FINAL; LYMPH % 27.6 % (9.0-44.0); LYMPHOCYTE # 1.8 TH/MM3 (1.0-4.8); MEAN CELL VOLUME 88.4 FL (80.0-100.0); MEAN CORPUSCULAR HEMOGLOBIN 27.9 PG (27.0-34.0); MEAN CORPUSCULAR HGB CONC 31.6 % (32.0-36.0); MONO % 11.9 % (0.0-8.0); NEUT % 56.9 % (16.0-70.0); PLATELET COUNT 188 TH/MM3 (150-450); RED BLOOD COUNT 3.57 MIL/MM3 (4.00-5.30); RED CELL DISTRIBUTION WIDTH 14.9 % (11.6-17.2); WHITE BLOOD COUNT 6.3 TH/MM3 (4.0-11.0)
[2017-04-29] MEDS: PRAVASTATIN SOD 20 MG TAB PO SCH (07:11)
[2017-04-29] MEDS: TORSEMIDE 20 MG TAB PO SCH (07:11)
[2017-04-29] MEDS: CALCIUM/VITAMIN D 250 MG/125 U TAB PO SCH ×3 (07:11→16:40)
[2017-04-29] MEDS: VENLAFAXINE HCL XR 75 MG CAP PO SCH (07:11)
[2017-04-29] MEDS: DOCUSATE SODIUM 50 MG/SENNA 8.6 MG TAB PO SCH ×2 (07:11→21:02)
[2017-04-29] MEDS: VITAMIN B CMPLX/VITC/FOLIC AC CAP PO SCH (07:11)
[2017-04-29] MEDS: GABAPENTIN 300 MG CAP PO SCH ×3 (07:11→16:40)
[2017-04-29] MEDS: PANTOPRAZOLE SOD 40 MG DELAYED RELEASE TAB PO SCH (07:12)
[2017-04-29] MEDS: MULTIVITAMINS/MINERALS THERAPEUTIC TAB PO SCH (07:12)
[2017-04-29 07:23] LABS: POTASSIUM 3.9 MEQ/L (3.5-5.1)
[2017-04-29] MEDS: CARVEDILOL 3.125 MG TAB PO SCH ×2 (07:42→21:02)
[2017-04-29] MEDS: LISINOPRIL 5 MG TAB PO SCH (07:42)
[2017-04-29] MEDS: SODIUM CHLORIDE 0.9% FLUSH 10 ML FLUSH IV FLUSH SCH ×2 (07:46→21:03)
[2017-04-29] MEDS: LACTATED RINGER'S 1000 ML INJ 1,000 ML IV SCH (07:47)
[2017-04-29] MEDS ORDERED: ACETAMINOPHEN 1000 MG/100 ML VIAL IV ONE (08:07)
[2017-04-29] MEDS ORDERED: fentaNYL CITRATE 250 MCG/5 ML AMP ONE (08:08)
[2017-04-29] MEDS ORDERED: FAMOTIDINE 20 MG/2 ML VIAL ONE (08:08)
--- NOTE | 2017-04-29 08:44 | EKG ---
Date Performed: 04/29/2017 Time Performed: 06:04:22 PTAGE: 76 years EKG: Sinus rhythm Consider left atrial abnormality Inferior T wave changes are nonspecific Borderline ECG NO PREVIOUS TRACING DOCTOR: Francesco Manuel Interpretating Date/Time 04/29/2017 08:43:00
[2017-04-29] MEDS ORDERED: ERGOCALCIFEROL (VIT D2) 50,000 UNIT CAP PO SCH (09:00)
[2017-04-29] MEDS ORDERED: SODIUM CITRATE PO SCH (09:00)
[2017-04-29] MEDS ORDERED: POTASSIUM CITRATE PO SCH (09:00)
[2017-04-29] MEDS ORDERED: CITRIC ACID PO SCH (09:00)
[2017-04-29] MEDS ORDERED: ceFAZolin INJ 1,000 MG VIAL IV ONE (09:15)
[2017-04-29] MEDS ORDERED: VANCOMYCIN HCL 1000 MG VIAL OTHER ONE (09:20)
[2017-04-29] MEDS ORDERED: GENTAMICIN SULFATE 80 MG/2 ML VIAL IRRIGATION ONE (09:28)
--- NOTE | 2017-04-29 09:53 | PD.OP ---
cc: Genaro Orourke MD Operative Report Date of Surgery: Apr 29, 2017 Preoperative Diagnosis: Displaced left distal radius fracture Postoperative Diagnosis: Procedure: Open reduction internal fixation left distal radius Anesthesia: Gen. Surgeon: Genaro Orourke In Flight Technician(s): KYLE Willett PA-C The surgical procedure was assisted by my physician clinical nursing assistant. My P.A. presence was necessary throughout this case for the manipulation and positioning of the surgical extremity. My P.A. was assisting me throughout the duration of this procedure. The skill set of a physician clinical nursing assistant was medically necessary to complete this procedure. During the surgical case the salvage engineering technician was working at the back table and the physician clinical nursing assistant was directly assisting me. Operation and Findings: Patient was seen and evaluated preoperatively and found to have a displaced intra-articular left distal radius fracture. Informed consent was obtained after detailed discussion of risk and benefits including bleeding, infection, injury to arteries, nerves, and blood vessels, weakness and numbness of hand, and tendon rupture. Informed consent was obtained. Patient received IV antibiotics prior to incision. Timeout procedure was performed. Operative extremity was prepped with alcohol followed by Hibiclens and draped usual sterile fashion. A standard volar approach to the distal radius was utilized. A 3 inch incision was made over the FCR tendon. Tendon sheath was opened. Pronator quadratus was elevated up. The fracture site was now visualized. The fracture did have intra-articular extension. Traction was applied. The articular surface was reduced. Fracture fragments were manipulated to achieve excellent reduction. K wires were used to hold provisional fixation. Fluoroscopy confirmed appropriate alignment of fracture. A Synthes 2 column variable angle distal radius plate was selected. Plate was provisionally fixed to bone with K wires. 2.7 and 2.4 cortical screws were used to compress plate to bone. Fluoroscopy confirmed appropriate alignment of fracture with well-placed hardware. Multiple 2.4 locking screws were now placed distally. Screws were predrilled and measured for appropriate length. 2 additional screws were placed into the shaft. K wires were removed. Final fluoroscopy revealed excellent of fracture with well-placed hardware. The wound was thoroughly irrigated with sterile saline. Subcutaneous tissue was closed with 3-0 Vicryl and skin was closed with 3-0 nylon. Sterile dressings were applied with Xeroform, 4 x 4, soft roll , and a well padded volar splint. Patient was awakened and transferred to recovery room in stable condition Genaro Orourke MD Apr 29, 2017 09:53
[2017-04-29] MEDS ORDERED: HYDR-3288 PO (09:56)
[2017-04-29] MEDS ORDERED: MORPHINE SULFATE 4 MG/ML INJ IV PUSH PRN (10:00)
[2017-04-29] MEDS ORDERED: DO NOT ADM ANY ANTICOAGULANT DRUGS PRN (10:17)
[2017-04-29] MEDS ORDERED: *morphine SULFATE 8 MG/ML PERIprocedure ONLY ONE (10:33)
[2017-04-29] MEDS ORDERED: *diphenhydrAMINE HCL 50 MG/ML VIAL PERIprocedural Use ONLY ONE (10:42)
--- NOTE | 2017-04-29 11:52 | MB ---
cc: ATA LOMAS DATE OF CONSULTATION: 04/29/2017 REASON FOR CONSULTATION: Left distal radius fracture. CONSULTING PHYSICIAN Dr. Zhang. HISTORY: Miss Jesus is a 76-hour-old female who was in [place] last week. She had fall in [place] resulting in a left ankle sprain. She returned home. She states that she lost her balance and fell because the left ankle was hurting. She had immediate left wrist pain. She denies immediate deformity of her wrist. She presented emergency room where x-rays revealed a displaced left distal radius fracture. She is currently awake and orthopedic floor. When complaint is her left wrist. Pain is worse with movement. She denies any dizziness, syncope or loss of consciousness. PAST MEDICAL HISTORY/ILLNESSES 1. Anemia 2. Depression 3. High cholesterol 4. Reflux 5. Urinary incontinence 6. Renal insufficiency. PAST SURGICAL HISTORY: 1. Gastric bypass. 2. Hernia repair. 3. Cholecystectomy. 4. Cataract surgery 5. Craniotomy 6. Left knee meniscus repair 7. Tonsillectomy ALLERGIES CELEBREX ACTONEL PRISTIQ MEDICATIONS medications include 1. Simvastatin. 2. Tramadol. 3. Lasix. 4. Coreg. 5. Lisinopril 6. Climara 7. Ambien 8. Gabapentin 9. Calcium. FAMILY HISTORY: Family history is positive for high cholesterol. SOCIAL HISTORY The patient denies alcohol, tobacco or drug use. She lives with two sisters. REVIEW OF SYSTEMS The patient denies headache, visual changes, neck pain, chest pain, shortness of breath, abdominal pain, nausea and vomiting, recent weight loss. She complains of left ankle pain from previous fall. She also complains of left wrist pain. PHYSICAL EXAMINATION IN GENERAL: The patient is a pleasant 76-year female who is awake and alert. She is awake, alert and x3. She appears well-developed, well-nourished. VITAL SIGNS: Temperature 97.1, pulse 76, respirations 16, blood pressure 154/72, O2 sat 94% on room air. HEAD, EYES, EARS, NOSE, AND THROAT: Head: The patient is normocephalic. Pupils are equal. NECK: Soft, nontender. Trachea is midline. ABDOMEN: Soft, nontender, nondistended. EXTREMITIES: Examination of left arm reveals no pain with shoulder, elbow motion. She is diffusely tender around the wrist. There is mild swelling present. She has good cap refill in all fingers. The skin is intact. Radial pulses palpable. Examination of right arm reveals no pain with shoulder, elbow or wrist motion. Skin is intact. Radial pulses palpable. Sensation is intact in all fingers. Examination of right leg reveals no pain with hip, knee or ankle motion. Skin is intact. Dorsalis pedis pulses palpable. Sensation is intact in right foot. Examination of left leg reveals no pain with hip or knee motion. She has mild swelling around her ankle. She has minimal tenderness to palpation around the medial or lateral ankle ligaments. Skin is intact sensation is intact. Dorsalis pedis pulses palpable bilaterally. X-RAYS X-rays of left wrist reviewed x-rays reveal a displaced intra-articular left distal radius fracture. IMPRESSION Displaced left distal radius fracture. PLAN The option discussed with the patient at this point I discussed surgical and nonsurgical options. Given the amount of displacement fracture I would recommend open reduction internal fixation of left wrist. Risks of surgery include bleeding, infection, injury to his blood vessels, painful hardware, tendon rupture, wrist stiffness, loss of motion, wrist arthritis as well as medical complications associated anesthesia. All questions were answered. I will plan on surgery today. A mid-level provider in my office (nurse practitioner or physician assistant store director) may see this patient on follow-up visits and continue to implement the objectives of this plan including: Starting or adjusting medications, injections , cast application, orthotics, brace application, physical therapy, radiological studies (including x-ray, MRI, CT, ultrasound, bone scan), vascular studies, neurologic studies, specialist consultation, and proceeding with surgical management, as appropriate. MD JOLYNN Hook/rommel /10:04 AM /10:27 AM RODRICK
[2017-04-29] MEDS ORDERED: PHENYLEPH/NS 1000 MCG/10 ML SYR IV ONE (12:00)
[2017-04-29] MEDS ORDERED: SODIUM CHLOR 0.9% 250 ML INJ 250 ML IV ONE (12:00)
[2017-04-29] MEDS ORDERED: PROPOFOL 200 MG/20 ML AMP IV ONE (12:00)
[2017-04-29] MEDS ORDERED: ONDANSETRON HCL 4 MG/2 ML VIAL IV PUSH ONE (12:00)
[2017-04-29] MEDS: ACETAMINOPHEN/HYDROcodone 325 MG/7.5 MG TAB PO PRN ×3 (12:38→21:02)
--- NOTE | 2017-04-29 14:48 | RADRPT ---
EXAM DATE/TIME: 04/29/2017 09:48 [facility] COMPARISON: WRIST LEFT LIMITED (AP & LAT), April 28, 2017, 10:04. INDICATIONS : Open reduction internal fixation left wrist. MEDICAL HISTORY : Hypertension. SURGICAL HISTORY : None. ENCOUNTER: Initial ACUITY: 1 day PAIN SCORE: Non-responsive. LOCATION: Left Wrist CONCLUSION: Fluoroscopic image during placement of T-shaped compression plate distal radius fixating fracture. Di stal ulnar fracture seen. Martin Alvarado MD on April 29, 2017 at 14:46 Board Certified Radiologist. This report was verified electronically.
--- NOTE | 2017-04-29 19:06 | HHI.PR ---
Subjective Interval History Alert, oriented, pain well-controlled, had surgery on her left arm earlier today , no complaints at this time Review of Systems Constitutional Constitutional Remarks As above, 10 systems reviewed otherwise negative Vitals/Results Intake & Output 04/28/17 04/28/17 04/29/17 14:59 22:59 06:59 Intake Total 480 ml 480 ml Balance 480 ml 480 ml Intake Oral 480 ml 480 ml # Voids 3 3 # Bowel Movements 0 0 Vital Signs Vital Signs Date Time Temp Pulse Resp B/P Pulse Ox O2 Delivery O2 Flow Rate FiO2 04/29/17 16:47 95.8 75 17 134/73 97 04/29/17 14:09 93 Nasal Cannula 2.00 04/29/17 12:15 96.6 70 16 149/75 93 04/29/17 11:15 98.6 74 12 149/85 95 Nasal Cannula 2 04/29/17 11:00 76 12 149/93 94 Nasal Cannula 2 04/29/17 10:45 74 14 160/89 94 Nasal Cannula 2 04/29/17 10:30 81 15 147/81 95 Nasal Cannula 2 04/29/17 10:17 98.6 82 16 152/84 93 Nasal Cannula 2 04/29/17 07:30 97.1 76 16 154/72 94 04/29/17 04:00 97.4 76 16 136/66 99 04/29/17 00:00 98.8 79 16 128/71 94 CBC/BMP: 04/29/17 0541 04/29/17 0541 Lab Results Laboratory Tests Test 04/29/17 05:41 White Blood Count 6.3 TH/MM3 Red Blood Count 3.57 MIL/MM3 Hemoglobin 9.9 GM/DL Hematocrit 31.5 % Mean Corpuscular Volume 88.4 FL Mean Corpuscular Hemoglobin 27.9 PG Mean Corpuscular Hemoglobin 31.6 % Concent Red Cell Distribution Width 14.9 % Platelet Count 188 TH/MM3 Mean Platelet Volume 9.8 FL Neutrophils (%) (Auto) 56.9 % Lymphocytes (%) (Auto) 27.6 % Monocytes (%) (Auto) 11.9 % Eosinophils (%) (Auto) 2.9 % Basophils (%) (Auto) 0.7 % Neutrophils # (Auto) 3.6 TH/MM3 Lymphocytes # (Auto) 1.8 TH/MM3 Monocytes # (Auto) 0.8 TH/MM3 Eosinophils # (Auto) 0.2 TH/MM3 Basophils # (Auto) 0.0 TH/MM3 CBC Comment DIFF FINAL Differential Comment Sodium Level 142 MEQ/L Potassium Level 3.9 MEQ/L Chloride Level 111 MEQ/L Carbon Dioxide Level 23.0 MEQ/L Anion Gap 8 MEQ/L Blood Urea Nitrogen 17 MG/DL Creatinine 0.73 MG/DL Estimat Glomerular Filtration 78 ML/MIN Rate Random Glucose 99 MG/DL Calcium Level 8.0 MG/DL Physical Exam General General Appearance: Well Developed, Comfortable Eyes Eye Exam: Pupils Reactive Ears & Nose Ears & Nose Exam: Nasal Mucosa Triplett Throat Throat Exam: Oral Mucosa Triplett & Moist Neck Neck Exam: Trachea Midline Pulmonary Resp Exam: Breath Sounds Equal, No Distress Cardiology CV Exam: Normal Sinus Rhythm, Good Perfusion Gastrointestinal/Abdomen GI Exam: Soft, Non-Tender, Bowel Sounds Present Musculoskeletal MS Exam: Normal Tone MS Remarks Left upper extremity and surgical dressings Integumentary Skin Exam: Warm, Dry Neurologic Neuro Exam: Awake, Oriented, Speech Clear Psychiatric Psych Exam: Appropriate Responses VTE Prophylaxis VTE Prophylaxis Meds: Heparin Assessment/Plan Assessment/Plan Assessment Left distal ulna and radius fracture, status post surgery on 04/29/17 Fall at home Acute kidney injury on arrival, his indices improved. Left ankle sprain History of hypertension, disc disease, neuropathy, urinary incontinence and difficulty hearing Management Postoperative wound management per orthopedics Pain control DVT prophylaxis Physical and occupational therapy Follow hemoglobin Follow electrolytes and replace as needed Follow renal function Discussed with patient Discussed with nurse Darlyn Zhang MD Apr 29, 2017 19:06
[2017-04-30 00:02] VITALS: BP 131/60; PULSE 66; RESP 18; TEMP 98.2; O2SAT 98
[2017-04-30] MEDS: ACETAMINOPHEN/HYDROcodone 325 MG/7.5 MG TAB PO PRN ×2 (02:44→12:15)
[2017-04-30 05:24] VITALS: BP 123/70; PULSE 76; RESP 18; TEMP 98.3; O2SAT 98
--- NOTE | 2017-04-30 06:48 | PD.ORT.PN ---
Subjective Subjective Remarks POD 1 s/p ORIF left wrist doing well. reports pain but controlled Objective Vitals Vital Signs Date Time Temp Pulse Resp B/P Pulse Ox O2 Delivery O2 Flow Rate FiO2 04/30/17 05:24 98.3 76 18 123/70 98 04/30/17 00:02 98.2 66 18 131/60 98 04/29/17 20:40 97.8 69 18 110/61 96 04/29/17 16:47 95.8 75 17 134/73 97 04/29/17 14:09 93 Nasal Cannula 2.00 04/29/17 12:15 96.6 70 16 149/75 93 04/29/17 11:15 98.6 74 12 149/85 95 Nasal Cannula 2 04/29/17 11:00 76 12 149/93 94 Nasal Cannula 2 04/29/17 10:45 74 14 160/89 94 Nasal Cannula 2 04/29/17 10:30 81 15 147/81 95 Nasal Cannula 2 04/29/17 10:17 98.6 82 16 152/84 93 Nasal Cannula 2 04/29/17 07:30 97.1 76 16 154/72 94 I/O 04/29/17 04/29/17 04/29/17 04/30/17 04/30/17 04/30/17 07:00 15:00 23:00 07:00 15:00 23:00 Intake Total 480 ml 1150 ml 480 ml Output Total 30 ml Balance 480 ml 1120 ml 480 ml Intake Oral 480 ml 100 ml 480 ml IV Total 50 ml Other 1000 ml Output Estimated Blood Loss 30 ml # Voids 3 2 2 # Bowel Movements 0 0 Result Diagram: 04/29/17 0541 04/29/17 0541 Objective Remarks LUE: +sugar tong splint. intact. NVI. good motion of fingers Assessment & Plan Assessment and Plan 1) Left Distal Radius Fx s/p ORIF - POD 1 -NWB -maintain splint at all times -Rx on chart -Ortho clear for discharge -f/u with [facility] or [facility] in 2 weeks Gilberto Arce Apr 30, 2017 06:48
[2017-04-30 07:53] LABS: AUTOMATED NEUTROPHIL # 4.2 TH/MM3 (1.8-7.7); BASOPHIL % 0.5 % (0.0-2.0); EOSINOPHIL # 0.1 TH/MM3 (0-0.4); EOSINOPHIL % 1.9 % (0.0-4.0); HEMATOCRIT 33.9 % (35.0-46.0); HEMO FLAGS DIFF FINAL; LYMPH % 25.7 % (9.0-44.0); LYMPHOCYTE # 1.8 TH/MM3 (1.0-4.8); MEAN CELL VOLUME 89.3 FL (80.0-100.0); MEAN CORPUSCULAR HEMOGLOBIN 27.9 PG (27.0-34.0); MEAN CORPUSCULAR HGB CONC 31.2 % (32.0-36.0); MONO % 12.1 % (0.0-8.0); NEUT % 59.8 % (16.0-70.0); PLATELET COUNT 208 TH/MM3 (150-450); RED CELL DISTRIBUTION WIDTH 14.5 % (11.6-17.2); WHITE BLOOD COUNT 7.1 TH/MM3 (4.0-11.0)
[2017-04-30 08:00] VITALS: BP 141/75; PULSE 76; RESP 18; TEMP 99.6; O2SAT 98
[2017-04-30 08:09] LABS: BICARBONATE 28.4 MEQ/L (21.0-32.0); POTASSIUM 4.5 MEQ/L (3.5-5.1)
[2017-04-30] MEDS ORDERED: HEPARIN SODIUM - SQ 10,000 UNITS/ML VIAL SQ SCH (09:00)
[2017-04-30] MEDS: DOCUSATE SODIUM 50 MG/SENNA 8.6 MG TAB PO SCH (09:48)
[2017-04-30] MEDS: PANTOPRAZOLE SOD 40 MG DELAYED RELEASE TAB PO SCH (09:48)
[2017-04-30] MEDS: CALCIUM/VITAMIN D 250 MG/125 U TAB PO SCH (09:48)
[2017-04-30] MEDS: TORSEMIDE 20 MG TAB PO SCH (09:48)
[2017-04-30] MEDS: CARVEDILOL 3.125 MG TAB PO SCH (09:48)
[2017-04-30] MEDS: MULTIVITAMINS/MINERALS THERAPEUTIC TAB PO SCH (09:48)
[2017-04-30] MEDS: GABAPENTIN 300 MG CAP PO SCH (09:48)
[2017-04-30] MEDS: VENLAFAXINE HCL XR 75 MG CAP PO SCH (09:48)
[2017-04-30] MEDS: VITAMIN B CMPLX/VITC/FOLIC AC CAP PO SCH (09:48)
[2017-04-30] MEDS: PRAVASTATIN SOD 20 MG TAB PO SCH (09:49)
[2017-04-30] MEDS: LISINOPRIL 5 MG TAB PO SCH (09:49)
[2017-04-30] MEDS: SODIUM CHLORIDE 0.9% FLUSH 10 ML FLUSH IV FLUSH SCH (09:49)
[2017-04-30 10:05] VITALS: O2SAT 94
--- NOTE | 2017-04-30 10:48 | HHI.PR ---
Subjective Subjective Remarks left arm pain, states pain med not working, asking for hydrocone however she is on it. States Morphine worked best no cp no sob no bm yet appetite fair no fever sisters at [facility] Review of Systems Constitutional Constitutional Remarks 12 point ros completed, negative except as noted above Vitals/Results Intake & Output 04/29/17 04/29/17 04/30/17 14:59 22:59 06:59 Intake Total 1150 ml 480 ml Output Total 30 ml Balance 1120 ml 480 ml Intake Oral 100 ml 480 ml IV Total 50 ml Other 1000 ml Output Estimated Blood Loss 30 ml # Voids 2 2 # Bowel Movements 0 Vital Signs Vital Signs Date Time Temp Pulse Resp B/P Pulse Ox O2 Delivery O2 Flow Rate FiO2 04/30/17 10:05 94 21 04/30/17 08:00 99.6 76 18 141/75 98 04/30/17 05:24 98.3 76 18 123/70 98 04/30/17 00:02 98.2 66 18 131/60 98 04/29/17 20:40 97.8 69 18 110/61 96 04/29/17 16:47 95.8 75 17 134/73 97 04/29/17 14:09 93 Nasal Cannula 2.00 04/29/17 12:15 96.6 70 16 149/75 93 04/29/17 11:15 98.6 74 12 149/85 95 Nasal Cannula 2 04/29/17 11:00 76 12 149/93 94 Nasal Cannula 2 CBC/BMP: 04/30/17 0640 04/30/17 0640 Lab Results Laboratory Tests Test 04/30/17 06:40 White Blood Count 7.1 TH/MM3 Red Blood Count 3.80 MIL/MM3 Hemoglobin 10.6 GM/DL Hematocrit 33.9 % Mean Corpuscular Volume 89.3 FL Mean Corpuscular Hemoglobin 27.9 PG Mean Corpuscular Hemoglobin 31.2 % Concent Red Cell Distribution Width 14.5 % Platelet Count 208 TH/MM3 Mean Platelet Volume 10.0 FL Neutrophils (%) (Auto) 59.8 % Lymphocytes (%) (Auto) 25.7 % Monocytes (%) (Auto) 12.1 % Eosinophils (%) (Auto) 1.9 % Basophils (%) (Auto) 0.5 % Neutrophils # (Auto) 4.2 TH/MM3 Lymphocytes # (Auto) 1.8 TH/MM3 Monocytes # (Auto) 0.9 TH/MM3 Eosinophils # (Auto) 0.1 TH/MM3 Basophils # (Auto) 0.0 TH/MM3 CBC Comment DIFF FINAL Differential Comment Sodium Level 143 MEQ/L Potassium Level 4.5 MEQ/L Chloride Level 110 MEQ/L Carbon Dioxide Level 28.4 MEQ/L Anion Gap 5 MEQ/L Blood Urea Nitrogen 13 MG/DL Creatinine 0.92 MG/DL Estimat Glomerular Filtration 60 ML/MIN Rate Random Glucose 96 MG/DL Calcium Level 8.3 MG/DL Phosphorus Level 2.3 MG/DL Magnesium Level 2.0 MG/DL Physical Exam General General Appearance: Well Developed, Comfortable Eyes Eye Exam: Pupils Equal, Pupils Reactive Ears & Nose Ears & Nose Exam: Nasal Mucosa Mertens Throat Throat Exam: Oral Mucosa Mertens & Moist Neck Neck Exam: Trachea Midline Pulmonary Resp Exam: Breath Sounds Equal, No Distress Cardiology CV Exam: Normal Sinus Rhythm, Good Perfusion Gastrointestinal/Abdomen GI Exam: Soft, Non-Tender, Bowel Sounds Present, Non-Distended Musculoskeletal MS Exam: Normal Tone MS Remarks Left arm in sling, dressing D/I Integumentary Skin Exam: Warm, Dry Neurologic Neuro Exam: Alert, Awake, Oriented, Speech Clear, No Focal Deficits Psychiatric Psych Exam: Appropriate Responses VTE Prophylaxis VTE Prophylaxis Meds: Heparin Assessment/Plan Assessment/Plan Left distal ulna and radius fracture, status post surgery on 04/29/17 Fall at home Acute kidney injury on arrival, renal indices improved. Left ankle sprain History of hypertension, disc disease, neuropathy, urinary incontinence and difficulty hearing Management s/p ORIF left wrist 04/29 Postoperative care per orthopedics Pain control DVT prophylaxis with heparin SQ Bowel regimen Wound care cleared for discharge by ortho continue home meds labs reviewed, stable renal function improved off IVF now CM consult for DC planning, C Discharge with [facility] today F/U Dr. Lujan 2 weeks Diet-heart healthy Activity-NWB, keep sling in place D/W RN D/ W pt and family D/W Dr. Clemons This patient was seen by myself and Dr. Clemons, this note is written on her behalf. Discharge Minutes: 40 Samira Candelaria Apr 30, 2017 10:48
--- NOTE | 2017-04-30 10:49 | HHI.FF ---
Face to Face Verification Diagnosis: (1) Distal radius fracture, left Occupational Therapy Order: Evaluate and Treat Home Health Nursing Order: Medical education Nursing assessment with vital signs I have seen patient Jaja Jesus on 04/30/17. My clinical findings support the need for the requested home health care services because: Limited ability to care for self Need for psychosocial assistance High risk of falls I certify that my clinical findings support that this patient is homebound because: Unsteady gait/balance Samira Candelaria [facility] Apr 30, 2017 10:49
--- NOTE | 2017-04-30 10:53 | HHI.DCPOC ---
Discharge Care Plan Diagnosis: (1) Distal radius fracture, left Your Health Problems Are: Difficulty with ADL Goals to Promote Your Health * To prevent worsening of your condition and complications * To maintain your health at the optimal level Directions to Meet Your Goals Take your medications as prescribed Follow your dietary instruction Follow activity as directed Keep your appointments as scheduled Take your immunizations and boosters as scheduled If your symptoms worsen call your PCP, if no PCP go to Urgent Care Center or Emergency Room Smoking is Dangerous to Your Health. Avoid second hand smoke Call the 24-hour hour crisis hotline for domestic abuse at Samira Candelaria. [facility] Apr 30, 2017 10:53
--- NOTE | 2017-04-30 10:54 | HHI.DS ---
Discharge Summary Admission Date Apr 28, 2017 at 12:53 Discharge Date: Apr 30, 2017 Admitting Diagnosis Left distal radius and ulna fracture (1) Distal radius fracture, left (2) Fall at home (3) HTN (hypertension) (4) Neuropathy (5) Depression (6) LUIS (acute kidney injury) (7) Left ulnar fracture Procedures s/p ORIF left wrist 04/29 CBC/BMP: 04/30/17 0640 04/30/17 0640 Significant Findings Laboratory Tests Test 04/28/17 04/29/17 04/30/17 08:13 05:41 06:40 Red Blood Count 3.77 MIL/MM3 3.57 MIL/MM3 3.80 MIL/MM3 (4.00-5.30) (4.00-5.30) (4.00-5.30) Hemoglobin 10.5 GM/DL 9.9 GM/DL 10.6 GM/DL (11.6-15.3) (11.6-15.3) (11.6-15.3) Hematocrit 33.6 % 31.5 % 33.9 % (35.0-46.0) (35.0-46.0) (35.0-46.0) Mean Corpuscular Hemoglobin 31.1 % 31.6 % 31.2 % Concent (32.0-36.0) (32.0-36.0) (32.0-36.0) Neutrophils (%) (Auto) 74.0 % (16.0-70.0) Monocytes (%) (Auto) 10.9 % 11.9 % 12.1 % (0.0-8.0) (0.0-8.0) (0.0-8.0) Monocytes # (Auto) 1.1 TH/MM3 (0-0.9) Activated Partial 23.3 SEC Thromboplast Time (24.3-30.1) Blood Urea Nitrogen 23 MG/DL (7-18) Creatinine 1.17 MG/DL (0.50-1.00) Estimat Glomerular Filtration 45 ML/MIN (>89) 78 ML/MIN (>89) 60 ML/MIN (>89) Rate Random Glucose 124 MG/DL (74-106) Calcium Level 8.3 MG/DL 8.0 MG/DL 8.3 MG/DL (8.5-10.1) (8.5-10.1) (8.5-10.1) Antibody Screen POSITIVE Chloride Level 111 MEQ/L 110 MEQ/L (98-107) (98-107) Phosphorus Level 2.3 MG/DL (2.5-4.9) Hospital Course This is a is a pleasant 76-year-old white female who had just recently returned from a trip and was resting in her bed, she got up approximately 04:00 a.m. to go feed her animal. When she leaned over to reach for her dog's bowl she lost her balance and slipped on her floor, she landed on her right arm and right wrist which immediately started to have pain and swelling. The patient also notes a recent left ankle sprain which still shows some 1+ edema generalized over the left lower extremity. The patient called her sister to tell her about her recent fall and was brought to the emergency room for further evaluation. The patient denied any dizziness, no syncopal episode, stated that it was a slip on her floor. She denied any chest pain, no shortness of breath. She did state a mild headache which has been off and on for the past few days. She also noted a possible mild fever approximately two days ago. She did not check her temperature but was awakened with diaphoresis, stated that she got up changed her clothes and went back to bed. Pt. was evaluated in the ED: DIAGNOSTIC DATA WBC count 10.1, RBC 3.77, hemoglobin 10.5, hematocrit 33.6, neutrophil percentage auto 74, monocytes 10.9, eosinophils 0.8. Chemistries: Sodium 140, potassium 4.1, chloride 107, carbon dioxide 24.8, anion gap 8, BUN 23, creatinine 1.17, GFR 45, random glucose 124, calcium 8.3. PT/INR is 0.9. IMAGING STUDIES Imaging studies show her cervical spine CT to have multilevel degenerative changes but no fracture. Hand x-ray: Distal radius and ulna fractures with posterior displacement. Head CT: Encephalomalacia left frontal lobe and previous craniotomy. No other acute intracranial abnormality. Periorbital/facial soft tissue swelling but no fractures noted. Wrist: Positive for radius and ulna fracture. A followup x-ray was done with improvement in alignment of her distal radius and ulna fractures. Pt. was admitted for: Left distal ulna and radius fracture, status post surgery on 04/29/17 Fall at home Acute kidney injury on arrival, renal indices improved. Left ankle sprain History of hypertension, disc disease, neuropathy, urinary incontinence and difficulty hearing During the course of the hospitalization, the following took place: Patient was admitted, orthopedic was consulted for evaluation. Appropriate pain management was initiated Home medications were reviewed and initiated as indicated Orthopedic evaluated, recommended surgical repair. s/p ORIF left wrist 04/29 Postoperative care per orthopedics instituted Pain control DVT prophylaxis with heparin SQ Bowel regimen Wound care Uneventful post op course, no fever, pain controlled. cleared for discharge by ortho continued home meds labs reviewed, stable renal function improved initially put on IVF bmp was monitored closely. CM consult for DC planning, [facility] Discharged with [facility] in stable condition Instructed to: F/U Dr. Lujan 2 weeks Diet-heart healthy Activity-NWB, keep sling in place Pt Condition on Discharge: Stable Discharge Disposition: Disch w/ Home Health Serv Discharge Instructions DIET: Follow Instructions for: Heart Healthy Diet Activities you can perform: See Additionl Instruction Other Activity Instructions: NON WEIGHT BEARING LEFT ARM AND MAINTAINT SPLINT AT ALL TIMES Follow up Referrals: Orthopedics - 05/13/17 @ [facility] with Genaro Lujan MD New Medications: Hydrocodone-Acetaminophen (Pool) 7.5-325 mg Tab 1 TAB PO Q4H PRN PAIN #50 Ref 0 TAB Continued Medications: B-Complex W/ Folic Acid (B Complex) 1 Tab 1 TAB PO DAILY TAB Calcium Crb,Cit/D3/Min34/Luis (Citracal + Bone Density Tablet) 1 Each Tablet 1 TAB PO TID Carvedilol (Carvedilol) 3.125 Mg Tab 3.125 MG PO BID #60 Ref 0 TAB Ergocalciferol (Ergocalciferol) 50,000 Unit Cap 548185 UNITS PO DAILY Nutritional Supplement #30 Ref 0 CAP Estradiol Patch 168 HR (Climara Patch 168 HR) 0.025 Mg/24 Hr Patch 1 PATCH TOPICAL Q7D Remove old patch and discard when placing a new patch. Estrogen Supplements #4 Ref 0 PATCH Gabapentin (Gabapentin) 600 Mg Tab 600 MG PO TID #90 Ref 0 TAB Lisinopril (Lisinopril) 2.5 Mg Tab 2.5 MG PO DAILY #30 Ref 0 TAB Mirabegron (Myrbetriq) 50 Mg Tab 50 MG PO DAILY Urinary Symptom Managemen #30 Ref 0 TAB Multiple Vitamins W/ Minerals (Centrum Silver Adult 50+) 1 Tab Tab 1 TAB PO DAILY Potassium Citrate-Sod Citrate-Citric Acid Liq (Tricitrates Liq) 550-500-334 Mg/ 5 Ml Soln 10 ML PO DAILY Selenomethionine (Selenium) 200 Mcg Tablet Unknown Dose PO DAILY Simvastatin (Zocor) 10 Mg Tab 10 MG PO DAILY Cholesterol Management #30 Ref 0 TAB Torsemide (Torsemide) 20 Mg Tab 20 MG PO DAILY #30 Ref 0 TAB Tramadol (Tramadol) 50 Mg Tab 100 MG PO BID Pain Management Ref 0 TAB Venlafaxine ER 24 HR (Venlafaxine ER 24 HR) 225 Mg Tab 225 MG PO DAILY #30 Ref 0 TAB Zinc Gluconate (Zinc) 50 Mg Tab Unknown Dose PO DAILY Zolpidem (Ambien) 5 Mg Tab 5 MG PO HS PRN INSOMNIA Ref 0 TAB Samira Candelaria Apr 30, 2017 10:54 History of hypertension, disc disease, neuropathy, urinary incontinence and difficulty hearing Management s/p ORIF left wrist 04/29 Postoperative care per orthopedics Pain control DVT prophylaxis with heparin SQ Bowel regimen Wound care cleared for discharge by ortho continue home meds labs reviewed, stable renal function improved off IVF now CM consult for DC planning, [facility] Discharge with [facility] today F/U Dr. Lujan 2 weeks Diet-heart healthy Activity-NWB, keep sling in place D/W RN D/ W pt and family D/W Dr. Clemons This patient was seen by myself and Dr. Clemons, this note is written on her behalf. Pt Condition on Discharge: Stable Discharge Disposition: Disch w/ Home Health Serv Discharge Instructions DIET: Follow Instructions for: Heart Healthy Diet Activities you can perform: See Additionl Instruction Other Activity Instructions: NON WEIGHT BEARING LEFT ARM AND MAINTAINT SPLINT AT ALL TIMES Samira Candelaria Apr 30, 2017 10:54
== END 2017-04-30 12:43 | disposition home health service (06) | DRG 511 ==
LOC: NEPC 07:34 → NEDA 12:53 → N06B 16:31
PROVIDERS: ADMIT Specialist; ATTEND Specialist
PROC: 0PSJ04Z Reposition Left Radius with Internal Fixation Device, Open Approach (ICD-10-PCS; principal; 2017-04-29 08:57)
DX: S52.572A Other intraarticular fracture of lower end of left radius, initial encounter for closed fracture (principal); S52.602A Unspecified fracture of lower end of left ulna, initial encounter for closed fracture; N17.9 Acute kidney failure, unspecified; G62.9 Polyneuropathy, unspecified; G93.89 Other specified disorders of brain; F32.9 Major depressive disorder, single episode, unspecified; S93.402D Sprain of unspecified ligament of left ankle, subsequent encounter; E78.00 Pure hypercholesterolemia, unspecified; K21.9 Gastro-esophageal reflux disease without esophagitis; Z98.84 Bariatric surgery status; N39.3 Stress incontinence (female) (male); H91.90 Unspecified hearing loss, unspecified ear; N18.9 Chronic kidney disease, unspecified; I12.9 Hypertensive chronic kidney disease with stage 1 through stage 4 chronic kidney disease, or unspecified chronic kidney disease; E78.5 Hyperlipidemia, unspecified; Z86.011 Personal history of benign neoplasm of the brain; W01.0XXA Fall on same level from slipping, tripping and stumbling without subsequent striking against object, initial encounter; Y93.89 Activity, other specified; Y99.9 Unspecified external cause status; Y92.009 Unspecified place in unspecified non-institutional (private) residence as the place of occurrence of the external cause
CPT/HCPCS: 25565; 70450; 70486; 72125; 73100; 73120; 76000; 80048; 83735; 84100; 85025; 85610; 85730; 86077; 86850; 86870; 86900; 86901; 86902; 86920; 86922; 93005; 96374; 99152; 99153; C1713; J0131; J0690; J1200; J1580; J1644; J2270; J2370; J2405; J3010; J3370; J7050; J7120

== ENCOUNTER → 2017-05-19 | Outpatient (CLI) | payer MEDICARE, BC ==
[~2017-05-19] MED LIST changes: +B COTAB3 PO; +CHEL50TA PO; +ERGO1CAP30 PO; +FERR325C PO; +HYDR-3288 PO; +IRON; +MULT1TAB PO; +SELE200T8 PO; +ZOLE5P IV
[2017-05-19 13:24] LABS: POTASSIUM 4.4 MEQ/L (3.5-5.1)
== END ==
LOC: PLAB 11:09
DX: E83.51 Hypocalcemia (principal); E55.9 Vitamin D deficiency, unspecified; M81.0 Age-related osteoporosis without current pathological fracture
CPT/HCPCS: 36415; 80069; 82306; 82652; 83970

== ENCOUNTER 2017-06-11 13:39 | Emergency (ER) | payer MEDICARE, BC ==
[~2017-06-11] VITALS: Ht 162.6 cm; Wt 59.0 kg
[~2017-06-11 13:39] MED LIST changes: -FERR325C PO; -IRON; -ZOLE5P IV
[2017-06-11 13:46] VITALS: BP 117/61; PULSE 73; RESP 17; TEMP 98.1; O2SAT 96
[2017-06-11] MEDS ORDERED: FERR325C PO (14:45)
--- NOTE | 2017-06-11 15:46 | RADRPT ---
EXAM DATE/TIME: 06/11/2017 15:17 [facility] COMPARISON: No previous studies available for comparison. INDICATIONS : Rib pain due to fall. MEDICAL HISTORY : Hypertension. SURGICAL HISTORY : Gastric bypass. ENCOUNTER: Initial ACUITY: 1 day PAIN SCORE: 8/10 LOCATION: Left ribs FINDINGS: Expiratory chest reveals no evidence of pneumothorax. Bones are osteoporotic. I do not see displace d rib fracture. There is moderate gaseous distention of colon. CONCLUSION: Negative for displaced rib fracture. Mando Mendoza MD FACR on June 11, 2017 at 15:44 Board Certified Radiologist. This report was verified electronically.
--- NOTE | 2017-06-11 15:54 | RADRPT ---
EXAM DATE/TIME: 06/11/2017 15:26 [facility] COMPARISON: FOOT LEFT COMPLETE ([id number]), April 26, 2017, 9:00. INDICATIONS : Pain due to fall. MEDICAL HISTORY : Hypertension. SURGICAL HISTORY : Gastric bypass. ENCOUNTER: Initial ACUITY: 1 day PAIN SCORE: 8/10 LOCATION: Left foot, MTPJ area FINDINGS: There is soft tissue swelling over the dorsum of the foot without fracture. Alignment is anatomic. CONCLUSION: Soft tissue swelling without fracture. Mando Mendoza MD FACR on June 11, 2017 at 15:51 Board Certified Radiologist. This report was verified electronically.
--- NOTE | 2017-06-11 16:06 | PD ---
HPI Chief Complaint: Fall Time Seen by Provider: 14:56 Travel History International Travel<30 days: No Contact w/Intl Traveler<30days: No Traveled to known affect area: No History of Present Illness HPI 76 -year-old female presents emergency department for evaluation of left foot and left rib pain status post fall 4 days ago. Patient had a mechanical fall twisting her left foot and falling onto her side table which injured her left rib. She denies chest pain, shortness of breath. She reports the pain the foot and ribs are constant, worse with movement or palpation of the area. Mildly relieved with rest. Pain severity 3/10. 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, HEARING AIDS) Endocrine: No Gastrointestinal Disorders: Yes GERD: Yes Genitourinary: Yes (necrosis ) Hiatal Hernia: Yes (OPERATION RESOLVED GERD) Herniated Disk: Yes Hypertension: Yes Immune Disorder: No Musculoskeletal: Yes (FRACTURES) Neurologic: Yes (neuropathy) Psychiatric: Yes Reproductive: Yes (HYSTERECTOMY, ENLARGED BLADDER AND SELF CATH'S SELF) Respiratory: No Migraines: No Myocardial Infarction: No Radiation Therapy: No Renal Failure: No Seizures: No Sickle Cell Disease: No Thyroid Disease: No Ulcer: No Tetanus Vaccination: Unknown ?: Not : 4 Para: 4 Past Surgical History Abdominal Surgery: Yes (GASTRIC DISTAL BYPASS 1991, HERNIA 2011, APPY, COOKIE) Body Medical Devices: titanium rods in head, layton in abdomen, HERNIA MESH Cholecystectomy: Yes Ear Surgery: No Endocrine Surgery: No Eye Surgery: Yes (BILAT CATARACTS) Genitourinary Surgery: Yes (bladder sling) Gynecologic Surgery: No Hysterectomy: Yes Neurologic Surgery: Yes (CRANIOTOTOMY 2013 WITH TITANIUM) Oral Surgery: Yes (TONSILLECTOMY) Tonsillectomy: Yes Other Surgery: Yes (L5-S1, R KNEE TORN MENISCUS) Family History Family Hypercholesterolemia: Yes Social History Alcohol Use: Yes (very rarely) Tobacco Use: No Substance Use: No Allergies-Medications (Allergen,Severity, Reaction): Coded Allergies: celecoxib (Unverified Allergy, Severe, RENAL FAILURE, 05/24/17) *MDRO Multi-Drug Resistant Organism (Unverified Allergy, Unknown, 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 desvenlafaxine (Unverified Allergy, Unknown, 05/24/17) risedronate sodium (Unverified Allergy, Unknown, 05/24/17) Reported Meds & Prescriptions Reported Meds & Active Scripts Active Reported Iron (Ferrous Sulfate) 325 Mg Cap 325 Mg PO DAILY Centrum Silver Adult 50+ (Multiple Vitamins W/ Minerals) 1 Tab Tab 1 Tab PO DAILY B Complex (B-Complex W/ Folic Acid) 1 Tab 1 Tab PO DAILY Selenium (Selenomethionine) 200 Mcg Tablet Unknown Dose PO DAILY Zinc (Zinc Gluconate) 50 Mg Tab Unknown Dose PO DAILY Ergocalciferol 50,000 Unit Cap 150,000 Units PO DAILY Myrbetriq (Mirabegron) 50 Mg Tab 50 Mg PO DAILY Zocor (Simvastatin) 10 Mg Tab 10 Mg PO DAILY Tramadol (Tramadol HCl) 50 Mg Tab 100 Mg PO BID Torsemide 20 Mg Tab 20 Mg PO DAILY Carvedilol 3.125 Mg Tab 3.125 Mg PO BID Lisinopril 2.5 Mg Tab 2.5 Mg PO DAILY Venlafaxine ER 24 HR (Venlafaxine HCl) 225 Mg Tab 225 Mg PO DAILY Climara Patch 168 HR (Estradiol) 0.025 Mg/24 Hr Patch 1 Patch TOPICAL Q7D Remove old patch and discard when placing a new patch. Ambien (Zolpidem Tartrate) 5 Mg Tab 5 Mg PO HS PRN Gabapentin 600 Mg Tab 600 Mg PO TID Citracal + Bone Density Tablet (Calcium Crb,Cit/D3/Min34/Luis) 1 Each Tablet 1 Tab PO TID Tricitrates Liq (Potassium Citrate-Sod Citrate-Citric Acid Liq) 550-500-334 Mg/ 5 Ml Soln 10 Ml PO DAILY Review of Systems Except as stated in HPI: all other systems reviewed are Neg Physical Exam Narrative GENERAL: Well-nourished, well-developed patient. SKIN: Focused skin assessment warm/dry. HEAD: Normocephalic. EYES: No scleral icterus. No injection or drainage. NECK: Supple, trachea midline. No JVD or lymphadenopathy. CARDIOVASCULAR: Regular rate and rhythm without murmurs, gallops, or rubs. CHEST wall: Lateral rib tenderness without crepitus. RESPIRATORY: Breath sounds equal bilaterally. No accessory muscle use. GASTROINTESTINAL: Abdomen soft, non-tender, nondistended. MUSCULOSKELETAL: No cyanosis, or edema. Left foot: Notable swelling and tenderness over the dorsal aspect. 2+ distal pulses. Normal sensation. BACK: Nontender without obvious deformity. No CVA tenderness. Data Data Last Documented VS Vital Signs Date Time Temp Pulse Resp B/P (MAP) Pulse Ox O2 Delivery O2 Flow Rate FiO2 06/11/17 13:46 98.1 73 17 117/61 (79) 96 Orders Orders Foot, Complete ([id number]) (06/11/17 ) Ribs, Uni (W/Exp Cxr-Min 3vw) (06/11/17 ) MDM Medical Decision Making Medical Screen Exam Complete: Yes Emergency Medical Condition: Yes Differential Diagnosis Foot fracture versus midfoot sprain, rib contusion versus rib fracture Narrative Course 76-year-old female presents emergency department for evaluation of left foot and left rib pain status post mechanical fall 4 days ago. Patient's physical exam is reassuring. She has mild swelling and tenderness over the left dorsal aspect of the foot. She also has left lateral rib pain without crepitus. Lung sounds are clear. Chest x-ray was negative for pneumothorax or rib fracture. Foot x-ray was negative for acute fracture. Patient be treated for contusion and instructed to follow-up with her PCP. Diagnosis Primary Impression: Rib contusion Qualified Codes: S20.212A - Contusion of left front wall of thorax, initial encounter Additional Impression: Foot sprain Qualified Codes: S93.602A - Unspecified sprain of left foot, initial encounter Referrals: Primary Care Physician Additional Instructions: Take [id number] Tylenol as needed for pain. Rest, ice, elevate the extremity. Follow-up with her primary doctor for recheck. Return to emergency department if he developed new or worsening symptoms. Disposition: 01 DISCHARGE HOME Condition: Stable Daria Nicole Jun 11, 2017 16:06
== END 2017-06-11 16:16 | disposition home or self-care (01) ==
LOC: PHED 13:39
DX: S20.212A Contusion of left front wall of thorax, initial encounter (principal); S93.602A Unspecified sprain of left foot, initial encounter; I10 Essential (primary) hypertension; H91.90 Unspecified hearing loss, unspecified ear; W18.39XA Other fall on same level, initial encounter; Z86.2 Personal history of diseases of the blood and blood-forming organs and certain disorders involving the immune mechanism; Z87.39 Personal history of other diseases of the musculoskeletal system and connective tissue; Z86.59 Personal history of other mental and behavioral disorders; Z86.79 Personal history of other diseases of the circulatory system; Z87.19 Personal history of other diseases of the digestive system; Z87.448 Personal history of other diseases of urinary system; Z86.69 Personal history of other diseases of the nervous system and sense organs
CPT/HCPCS: 71101; 73630; 99284

== ENCOUNTER 2017-07-16 18:19 | Emergency (ER) | payer MEDICARE, BC ==
[~2017-07-16] VITALS: Ht 162.6 cm; Wt 60.5 kg
[~2017-07-16 18:19] MED LIST changes: +FERR325C PO; -HYDR-3288 PO
[2017-07-16 18:23] VITALS: BP 136/64; PULSE 77; RESP 16; TEMP 97.4; O2SAT 96
--- NOTE | 2017-07-16 18:40 | PD ---
HPI Chief Complaint: Pain: Acute or Chronic Time Seen by Provider: 18:40 Travel History International Travel<30 days: No Contact w/Intl Traveler<30days: No Traveled to known affect area: No History of Present Illness HPI 76-year-old female came to the emergency room with history of all her finger joints, knee joints, elbow joints and toe joint hurting and burning sensation for past 2 days. Patient had received reclast and Iron IV about 2-3 days ago after which the symptoms started. Patient has had these shots in the past. However she noticed that the next day after that she started having these painful sensations. No history of fever or chills. No history of nausea vomiting or diarrhea. No history of rash on her skin. No history of chest pain. Her vital signs are stable. No aggravating or relieving factors. The pain/burning sensation is there at all times. No other associated signs or symptoms. PFSH Past Medical History Narrative Medical List of her past medical, surgical, social and family history is reviewed from the nursing note. 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[place], HEARING AIDS) Endocrine: No Gastrointestinal Disorders: Yes GERD: Yes Genitourinary: Yes (necrosis ) Hiatal Hernia: Yes (OPERATION RESOLVED GERD) Herniated Disk: Yes Hypertension: Yes Immune Disorder: No Musculoskeletal: Yes (FRACTURES) Neurologic: Yes (neuropathy) Psychiatric: Yes Reproductive: Yes (HYSTERECTOMY, ENLARGED BLADDER AND SELF CATH'S SELF) Respiratory: No Migraines: No Myocardial Infarction: No Radiation Therapy: No Renal Failure: No Seizures: No Sickle Cell Disease: No Thyroid Disease: No Ulcer: No ?: Not : 4 Para: 4 Past Surgical History Abdominal Surgery: Yes (GASTRIC DISTAL BYPASS 1991, HERNIA 2011, APPY, COOKIE) Body Medical Devices: titanium rods in head, layton in abdomen, HERNIA MESH Cholecystectomy: Yes Ear Surgery: No Endocrine Surgery: No Eye Surgery: Yes (BILAT CATARACTS) Genitourinary Surgery: Yes (bladder sling) Gynecologic Surgery: No Hysterectomy: Yes Neurologic Surgery: Yes (CRANIOTOTOMY 2013 WITH TITANIUM) Oral Surgery: Yes (TONSILLECTOMY) Tonsillectomy: Yes Other Surgery: Yes (L5-S1, R KNEE TORN MENISCUS) Family History Family Hypercholesterolemia: Yes Social History Alcohol Use: Yes (very rarely) Tobacco Use: No Substance Use: No Allergies-Medications (Allergen,Severity, Reaction): Coded Allergies: celecoxib (Verified Allergy, Severe, RENAL FAILURE, 07/16/17) *MDRO Multi-Drug Resistant Organism (Verified Allergy, Unknown, 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 Reported Meds & Prescriptions Reported Meds & Active Scripts Active Reported [Iron injection] Reclast Inj (Zoledronic Acid) 5 Mg/100 Ml Inj Unknown Dose IV ONCE Iron (Ferrous Sulfate) 325 Mg Cap 325 Mg PO DAILY Centrum Silver Adult 50+ (Multiple Vitamins W/ Minerals) 1 Tab Tab 1 Tab PO DAILY B Complex (B-Complex W/ Folic Acid) 1 Tab 1 Tab PO DAILY Selenium (Selenomethionine) 200 Mcg Tablet Unknown Dose PO DAILY Zinc (Zinc Gluconate) 50 Mg Tab Unknown Dose PO DAILY Ergocalciferol 50,000 Unit Cap 150,000 Units PO DAILY Myrbetriq (Mirabegron) 50 Mg Tab 50 Mg PO DAILY Zocor (Simvastatin) 10 Mg Tab 10 Mg PO DAILY Tramadol (Tramadol HCl) 50 Mg Tab 100 Mg PO BID Torsemide 20 Mg Tab 20 Mg PO DAILY Carvedilol 3.125 Mg Tab 3.125 Mg PO BID Lisinopril 2.5 Mg Tab 2.5 Mg PO DAILY Venlafaxine ER 24 HR (Venlafaxine HCl) 225 Mg Tab 225 Mg PO DAILY Climara Patch 168 HR (Estradiol) 0.025 Mg/24 Hr Patch 1 Patch TOPICAL Q7D Remove old patch and discard when placing a new patch. Ambien (Zolpidem Tartrate) 5 Mg Tab 5 Mg PO HS PRN Gabapentin 600 Mg Tab 600 Mg PO TID Citracal + Bone Density Tablet (Calcium Crb,Cit/D3/Min34/Luis) 1 Each Tablet 1 Tab PO TID Tricitrates Liq (Potassium Citrate-Sod Citrate-Citric Acid Liq) 550-500-334 Mg/ 5 Ml Soln 10 Ml PO DAILY Narrative Medication List of her home medications reviewed from the nursing note. Review of Systems Except as stated in HPI: all other systems reviewed are Neg Musculoskeletal: Positive: Pain (multiple small and large joints) Physical Exam Narrative GENERAL: Awake, alert, anxious, mild distress SKIN: Focused skin assessment warm/dry. HEAD: Atraumatic. Normocephalic. EYES: Pupils equal and round. No scleral icterus. No injection or drainage. ENT: No nasal bleeding or discharge. Mucous membranes pink and moist. NECK: Trachea midline. No JVD. CARDIOVASCULAR: Regular rate and rhythm. No murmur appreciated. RESPIRATORY: No accessory muscle use. Clear to auscultation. Breath sounds equal bilaterally. GASTROINTESTINAL: Abdomen soft, non-tender, nondistended. Hepatic and splenic margins not palpable. MUSCULOSKELETAL: No obvious deformities. No clubbing. No cyanosis. No edema. NEUROLOGICAL: Awake and alert. No obvious cranial nerve deficits. Motor grossly within normal limits. Normal speech. PSYCHIATRIC: Appropriate mood and affect; insight and judgment normal. Data Data Last Documented VS Vital Signs Date Time Temp Pulse Resp B/P (MAP) Pulse Ox O2 Delivery O2 Flow Rate FiO2 07/16/17 23:14 07/16/17 22:32 68 16 95 Room Air 07/16/17 18:23 97.4 Orders Orders Complete Blood Count With Diff (07/16/17 19:06) Comprehensive Metabolic Panel (07/16/17 19:06) Creatine Kinase (Cpk) (07/16/17 19:06) Urinalysis - C+S If Indicated (07/16/17 19:33) Urine Culture (07/16/17 19:36) Sodium Chlor 0.9% 1000 Ml Inj (Ns 1000 M (07/16/17 20:45) Calcium Gluconate Inj (Calcium Gluconate (07/16/17 20:45) Calcium Carbonate Chew (Tums Chew) (07/16/17 20:45) Labs Laboratory Tests Test 07/16/17 19:24 07/16/17 19:36 White Blood Count 9.9 TH/MM3 Red Blood Count 4.71 MIL/MM3 Hemoglobin 11.9 GM/DL Hematocrit 37.9 % Mean Corpuscular Volume 80.5 FL Mean Corpuscular Hemoglobin 25.2 PG Mean Corpuscular Hemoglobin Concent 31.3 % Red Cell Distribution Width 16.2 % Platelet Count 292 TH/MM3 Mean Platelet Volume 9.9 FL Neutrophils (%) (Auto) 63.6 % Lymphocytes (%) (Auto) 25.2 % Monocytes (%) (Auto) 9.6 % Eosinophils (%) (Auto) 1.3 % Basophils (%) (Auto) 0.3 % Neutrophils # (Auto) 6.3 TH/MM3 Lymphocytes # (Auto) 2.5 TH/MM3 Monocytes # (Auto) 1.0 TH/MM3 Eosinophils # (Auto) 0.1 TH/MM3 Basophils # (Auto) 0.0 TH/MM3 CBC Comment DIFF FINAL Differential Comment Blood Urea Nitrogen 24 MG/DL Creatinine 1.20 MG/DL Random Glucose 120 MG/DL Total Protein 7.3 GM/DL Albumin 3.7 GM/DL Calcium Level 7.1 MG/DL Alkaline Phosphatase 158 U/L Aspartate Amino Transf (AST/SGOT) 25 U/L Alanine Aminotransferase (ALT/SGPT) 34 U/L Total Bilirubin 0.3 MG/DL Sodium Level 139 MEQ/L Potassium Level 3.7 MEQ/L Chloride Level 109 MEQ/L Carbon Dioxide Level 20.7 MEQ/L Anion Gap 9 MEQ/L Estimat Glomerular Filtration Rate 44 ML/MIN Protein Corrected Calcium 7.1 MG/DL Total Creatine Kinase 118 U/L Urine Color YELLOW Urine Turbidity SLIGHT Urine pH 5.5 Urine Specific [place] 1.011 Urine Protein NEG mg/dL Urine Glucose (UA) NEG mg/dL Urine Ketones NEG mg/dL Urine Occult Blood NEG Urine Nitrite NEG Urine Bilirubin NEG Urine Leukocyte Esterase TRACE Urine WBC 15-19 /hpf Urine WBC Clumps RARE Urine Squamous Epithelial Cells 0-5 /hpf Urine Bacteria MANY /hpf Urine Mucus OCC /lpf Microscopic Urinalysis Comment CULTURE INDICATED MDM Medical Decision Making Medical Screen Exam Complete: Yes Emergency Medical Condition: Yes Medical Record Reviewed: Yes Differential Diagnosis Electrolyte abnormality, rhabdomyolysis, reaction to Reclast Narrative Course 9:32 PM blood test results of back. Patient's blood calcium level is critically low. Patient was given IV calcium and by mouth replacement as well. Given her dehydration she was given 1 L of IV fluid bolus. I'm comfortable discharging her home at this point. Patient was told about all these results and she acknowledges the fact that a few years ago she had something similar way she required IV calcium after Reclast. She is comfortable going home after this period of asked her to follow up with her primary care who can repeat an outpatient blood calcium level. Procedures EKG Prior to Arrival: No Diagnosis Primary Impression: Polyarthralgia Additional Impressions: Paresthesia Hypocalcemia Dehydration Referrals: Primary Care Physician 2 days Additional Instructions: Please return to the ER if the condition worsens or any other new concerns. Otherwise follow-up with your primary care physician by Tuesday or Tuesday and get a repeat outpatient blood calcium level. Med/Other Pt SpecificInfo: No Change to Meds Disposition: 01 DISCHARGE HOME Condition: Stable Aracely Yi MD Jul 16, 2017 18:40
[2017-07-16] MEDS ORDERED: ZOLE5P IV (19:05)
[2017-07-16] MEDS ORDERED: IRON (19:05)
[2017-07-16 19:43] LABS: POTASSIUM 3.7 MEQ/L (3.5-5.1)
[2017-07-16 19:44] LABS: BLOOD, URINE NEG (NEG); GLUCOSE,URINE NEG (NEG); KETONE, URINE NEG (NEG); NITRITE,URINE NEG (NEG); PH, URINE 5.5 (5.0-8.5)
[2017-07-16 19:47] LABS: AUTOMATED NEUTROPHIL # 6.3 TH/MM3 (1.8-7.7); BASOPHIL % 0.3 % (0.0-2.0); EOSINOPHIL # 0.1 TH/MM3 (0-0.4); EOSINOPHIL % 1.3 % (0.0-4.0); HEMATOCRIT 37.9 % (35.0-46.0); HEMO FLAGS DIFF FINAL; LYMPH % 25.2 % (9.0-44.0); LYMPHOCYTE # 2.5 TH/MM3 (1.0-4.8); MEAN CELL VOLUME 80.5 FL (80.0-100.0); MEAN CORPUSCULAR HEMOGLOBIN 25.2 PG (27.0-34.0); MEAN CORPUSCULAR HGB CONC 31.3 % (32.0-36.0); MONO % 9.6 % (0.0-8.0); NEUT % 63.6 % (16.0-70.0); PLATELET COUNT 292 TH/MM3 (150-450); RED BLOOD COUNT 4.71 MIL/MM3 (4.00-5.30); RED CELL DISTRIBUTION WIDTH 16.2 % (11.6-17.2); WHITE BLOOD COUNT 9.9 TH/MM3 (4.0-11.0)
[2017-07-16 20:10] LABS: URINE COLOR YELLOW (YELLW/STRAW)
[2017-07-16 20:11] LABS: BACTERIA, URINE MANY /hpf; SQUAMOUS EPITHELIAL CELL URINE 0-5 /hpf (0-5)
[2017-07-16 20:12] LABS: COMMENT (UR) CULTURE INDICATED; CULTURE IF INDICATED CULTURE INDICATED; MUCUS URINE OCC /lpf (OCC); WBC, URINE 15-19 /hpf (0-5)
[2017-07-16 20:14] LABS: BICARBONATE 20.7 MEQ/L (21.0-32.0); TOTAL BILIRUBIN ADULT 0.3 MG/DL (0.2-1.0)
[2017-07-16 20:22] LABS: CALCIUM-PROTEIN CORRECTED 7.1 MG/DL (8.5-10.1)
[2017-07-16] MEDS ORDERED: CALCIUM CARBONATE 500 MG CHEWABLE TAB CHEW ONE (20:45)
[2017-07-16] MEDS ORDERED: SODIUM CHLOR 0.9% 1000 ML INJ 1,000 ML IV ONE (20:45)
[2017-07-16] MEDS ORDERED: CALCIUM GLUCONATE INJ 1 GM in DEXTROSE 5% IN WATER 100ML INJ 100 ML IV ONE ×2 (20:45)
[2017-07-16 22:32] VITALS: BP 152/65; PULSE 68; RESP 16; O2SAT 95
== END 2017-07-16 23:20 | disposition home or self-care (01) ==
LOC: PHED 18:19
DX: M25.50 Pain in unspecified joint (principal); B96.20 Unspecified Escherichia coli [E. coli] as the cause of diseases classified elsewhere; R82.90 Unspecified abnormal findings in urine; D64.9 Anemia, unspecified; I10 Essential (primary) hypertension; K21.9 Gastro-esophageal reflux disease without esophagitis
CPT/HCPCS: 80053; 81001; 82550; 85025; 87077; 87086; 87186; 96361; 96365; 99284; J0610; J7030

== ENCOUNTER → 2017-08-03 | Outpatient (CLI) | payer MEDICARE, BC ==
[~2017-08-03] MED LIST changes: +IRON; +ZOLE5P IV
[2017-08-03 16:31] LABS: ALBUMIN 3.6 GM/DL (3.4-5.0); AUTOMATED NEUTROPHIL # 4.3 TH/MM3 (1.8-7.7); BASOPHIL % 0.6 % (0.0-2.0); BICARBONATE 23.5 MEQ/L (21.0-32.0); CALCIUM 8.3 MG/DL (8.5-10.1); CREATININE 1.07 MG/DL (0.50-1.00); EOSINOPHIL # 0.1 TH/MM3 (0-0.4); EOSINOPHIL % 1.2 % (0.0-4.0); HEMATOCRIT 37.3 % (35.0-46.0); HEMOGLOBIN 11.6 GM/DL (11.6-15.3); LYMPH % 32.9 % (9.0-44.0); LYMPHOCYTE # 2.5 TH/MM3 (1.0-4.8); MEAN CELL VOLUME 87.2 FL (80.0-100.0); MEAN CORPUSCULAR HEMOGLOBIN 27.2 PG (27.0-34.0); MEAN CORPUSCULAR HGB CONC 31.2 % (32.0-36.0); MEAN PLATELET VOLUME 9.3 FL (7.0-11.0); MONOCYTE # 0.7 TH/MM3 (0-0.9); NEUT % 56.3 % (16.0-70.0); PHOSPHORUS 3.6 MG/DL (2.5-4.9); PLATELET COUNT 227 TH/MM3 (150-450); RED BLOOD COUNT 4.28 MIL/MM3 (4.00-5.30); RED CELL DISTRIBUTION WIDTH 22.3 % (11.6-17.2); WHITE BLOOD COUNT 7.6 TH/MM3 (4.0-11.0)
[2017-08-03 17:05] LABS: BACTERIA, URINE RARE /hpf; BILIRUBIN, URINE NEG (NEG); BLOOD, URINE NEG (NEG); CALCIUM OXALATE CRYSTALS,URINE RARE /hpf; GLUCOSE,URINE NEG (NEG); KETONE, URINE NEG (NEG); NITRITE,URINE POS (NEG); SQUAMOUS EPITHELIAL CELL URINE <1 /hpf (0-5); URINE COLOR LIGHT-YELLOW (YELLW/STRAW); URINE LEUKOCYTE ESTERASE NEG (NEG)
== END ==
LOC: PLAB 12:24
PROVIDERS: ATTEND Internal Medicine Nephrology
DX: E55.9 Vitamin D deficiency, unspecified (principal); N18.3 Chronic kidney disease, stage 3 (moderate); N25.81 Secondary hyperparathyroidism of renal origin; N39.0 Urinary tract infection, site not specified; B96.20 Unspecified Escherichia coli [E. coli] as the cause of diseases classified elsewhere
CPT/HCPCS: 36415; 80069; 81001; 82306; 82570; 83970; 84156; 85025; 87077; 87086; 87186

== ENCOUNTER → 2018-01-13 | Outpatient (CLI) | payer MEDICARE, BC ==
[~2018-01-13] MED LIST changes: -ERGO1CAP30 PO; +VITA500012 PO
== END ==
LOC: PLAB 09:19
PROVIDERS: ATTEND Specialist
DX: G60.9 Hereditary and idiopathic neuropathy, unspecified (principal)

== ENCOUNTER → 2018-01-16 | Outpatient (CLI) | payer MEDICARE, BC ==
[2018-01-16 14:46] LABS: GLUCOSE,FASTING 77 MG/DL (74-99)
[2018-01-17 22:07] LABS: ALB/GLOB RATIO (SPE) 1.83 (1.39-2.23)
[2018-01-18 18:24] LABS: HEMOGLOBIN A1C 3.1 % (4.3-6.0)
== END ==
LOC: PLAB 09:07
PROVIDERS: ATTEND Specialist
DX: G60.8 Other hereditary and idiopathic neuropathies (principal); M47.27 Other spondylosis with radiculopathy, lumbosacral region; E03.9 Hypothyroidism, unspecified; E53.8 Deficiency of other specified B group vitamins; M31.6 Other giant cell arteritis; R51 Headache; R78.89 Finding of other specified substances, not normally found in blood
CPT/HCPCS: 36415; 82607; 82947; 83036; 84165; 85652; 86038

== ENCOUNTER → 2018-02-20 | Outpatient (CLI) | payer MEDICARE, BC ==
[2018-02-20 14:16] LABS: AUTOMATED NEUTROPHIL # 4.6 TH/MM3 (1.8-7.7); BASOPHIL % 0.5 % (0.0-2.0); EOSINOPHIL # 0.1 TH/MM3 (0-0.4); EOSINOPHIL % 0.8 % (0.0-4.0); HEMATOCRIT 35.7 % (35.0-46.0); HEMOGLOBIN 11.5 GM/DL (11.6-15.3); LYMPHOCYTE # 2.4 TH/MM3 (1.0-4.8); MEAN CELL VOLUME 95.5 FL (80.0-100.0); MEAN CORPUSCULAR HEMOGLOBIN 30.7 PG (27.0-34.0); MEAN CORPUSCULAR HGB CONC 32.1 % (32.0-36.0); MEAN PLATELET VOLUME 9.4 FL (7.0-11.0); MONO % 9.7 % (0.0-8.0); MONOCYTE # 0.8 TH/MM3 (0-0.9); PLATELET COUNT 208 TH/MM3 (150-450); RED BLOOD COUNT 3.74 MIL/MM3 (4.00-5.30); RED CELL DISTRIBUTION WIDTH 15.2 % (11.6-17.2); WHITE BLOOD COUNT 7.9 TH/MM3 (4.0-11.0)
[2018-02-20 14:36] LABS: ALBUMIN 3.3 GM/DL (3.4-5.0); BICARBONATE 26.8 MEQ/L (21.0-32.0); CALCIUM 8.2 MG/DL (8.5-10.1); CREATININE 0.94 MG/DL (0.50-1.00); PHOSPHORUS 3.2 MG/DL (2.5-4.9)
[2018-02-20 18:07] LABS: BACTERIA, URINE RARE /hpf; BILIRUBIN, URINE NEG (NEG); BLOOD, URINE NEG (NEG); GLUCOSE,URINE NEG (NEG); KETONE, URINE NEG (NEG); NITRITE,URINE POS (NEG); URINE COLOR YELLOW (YELLW/STRAW); URINE LEUKOCYTE ESTERASE NEG (NEG)
== END ==
LOC: PLAB 11:43
PROVIDERS: ATTEND Internal Medicine Nephrology
DX: N25.81 Secondary hyperparathyroidism of renal origin (principal); N18.3 Chronic kidney disease, stage 3 (moderate); N39.0 Urinary tract infection, site not specified; B96.20 Unspecified Escherichia coli [E. coli] as the cause of diseases classified elsewhere; Z87.442 Personal history of urinary calculi
CPT/HCPCS: 36415; 80069; 81001; 82570; 83970; 84156; 85025; 87077; 87086; 87186

== ENCOUNTER 2018-03-20 14:38 | Emergency (ER) | payer MEDICARE, BC ==
[2018-03-20 14:39] VITALS: BP 116/66; PULSE 71; RESP 18; TEMP 98; O2SAT 95
[2018-03-20] MEDS ORDERED: VITACAP7 PO (14:56)
[2018-03-20] MEDS ORDERED: OMEG1CAP28 PO (14:56)
[2018-03-20] MEDS ORDERED: [UNRECOGNIZED DRUG - OTHER] (14:56)
--- NOTE | 2018-03-20 15:09 | PD ---
HPI Chief Complaint: General Weakness Time Seen by Provider: 14:48 Travel History International Travel<30 days: No Contact w/Intl Traveler<30days: No Traveled to known affect area: No History of Present Illness HPI 77-year-old female presented ER for generalized weakness and shakiness of her arms and legs that comes and goes. Patient states that she has a history of low calcium and she does have hard time being calcium. Patient has no chest pain or shortness of breath, no new symptoms and says that the shakiness in her arms and legs has been going on for years and she keeps saying that she has a hard time absorbing calcium. Patient stated that the shakiness has been getting worse recently and that is why she decided to come to the ER for evaluation. No motor or sensory loss, no speech abnormalities. 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[place], HEARING AIDS) Endocrine: No Gastrointestinal Disorders: Yes GERD: Yes Genitourinary: Yes (necrosis ) Hiatal Hernia: Yes (OPERATION RESOLVED GERD) Herniated Disk: Yes Hypertension: Yes Immune Disorder: No Implanted Vascular Access Dvce: Yes Musculoskeletal: Yes (FRACTURES) Neurologic: Yes (neuropathy) Psychiatric: Yes Reproductive: Yes (HYSTERECTOMY, ENLARGED BLADDER AND SELF CATH'S SELF) Respiratory: No Migraines: No Myocardial Infarction: No Radiation Therapy: No Renal Failure: No Seizures: No Sickle Cell Disease: No Thyroid Disease: No Ulcer: No ?: Not : 4 Para: 4 Past Surgical History Abdominal Surgery: Yes (GASTRIC DISTAL BYPASS 1991, HERNIA 2011, APPY, COOKIE) Body Medical Devices: titanium rods in head, layton in abdomen, HERNIA MESH Cholecystectomy: Yes Ear Surgery: No Endocrine Surgery: No Eye Surgery: Yes (BILAT CATARACTS) Genitourinary Surgery: Yes (bladder sling) Gynecologic Surgery: No Hysterectomy: Yes Neurologic Surgery: Yes (CRANIOTOTOMY 2013 WITH TITANIUM) Oral Surgery: Yes (TONSILLECTOMY) Tonsillectomy: Yes Other Surgery: Yes (L5-S1, R KNEE TORN MENISCUS) Family History Family Hypercholesterolemia: Yes Social History Alcohol Use: Yes (very rarely) Tobacco Use: No Substance Use: No Allergies-Medications (Allergen,Severity, Reaction): Coded Allergies: celecoxib (Verified Allergy, Severe, RENAL FAILURE, 03/20/18) *MDRO Multi-Drug Resistant Organism (Verified Allergy, Unknown, 03/20/18) ESBL Escherichia coli 2013 desvenlafaxine (Verified Allergy, Unknown, 03/20/18) risedronate sodium (Verified Allergy, Unknown, 03/20/18) Reported Meds & Prescriptions Reported Meds & Active Scripts Active Reported Nfebn-3-Urel Ethyl Esters 1 Gm Cap 2 Gm PO BID B Complex (B-Complex Vitamins) 1 Cap 1 Cap PO DAILY Tricitrates Liq (Potassium Citrate-Sod Citrate-Citric Acid Liq) 550-500-334 Mg/ 5 Ml Soln Centrum Silver Adult 50+ (Multiple Vitamins W/ Minerals) 1 Tab Tab 1 Tab PO DAILY Zinc (Zinc Gluconate) 50 Mg Tab Unknown Dose PO DAILY Ergocalciferol 50,000 Unit Cap 150,000 Units PO DAILY Myrbetriq (Mirabegron) 50 Mg Tab 50 Mg PO DAILY Zocor (Simvastatin) 10 Mg Tab 10 Mg PO DAILY Tramadol (Tramadol HCl) 50 Mg Tab 100 Mg PO BID Torsemide 20 Mg Tab 20 Mg PO DAILY Carvedilol 3.125 Mg Tab 3.125 Mg PO BID Lisinopril 2.5 Mg Tab 2.5 Mg PO DAILY Venlafaxine ER 24 HR (Venlafaxine HCl) 225 Mg Tab 225 Mg PO DAILY Climara Patch 168 HR (Estradiol) 0.025 Mg/24 Hr Patch 1 Patch TOPICAL Q7D Remove old patch and discard when placing a new patch. Ambien (Zolpidem Tartrate) 5 Mg Tab 5 Mg PO HS PRN Gabapentin 600 Mg Tab 600 Mg PO TID Citracal + Bone Density Tablet (Calcium Crb,Cit/D3/Min34/Luis) 1 Each Tablet 1 Tab PO TID Review of Systems Except as stated in HPI: all other systems reviewed are Neg Physical Exam Narrative GENERAL: Alert oriented 3 in no acute distress SKIN: Focused skin assessment warm/dry. HEAD: Atraumatic. Normocephalic. EYES: Pupils equal and round. No scleral icterus. No injection or drainage. ENT: No nasal bleeding or discharge. Mucous membranes pink and moist. NECK: Trachea midline. No JVD. CARDIOVASCULAR: Regular rate and rhythm. No murmur appreciated. RESPIRATORY: No accessory muscle use. Clear to auscultation. Breath sounds equal bilaterally. GASTROINTESTINAL: Abdomen soft, non-tender, nondistended. Hepatic and splenic margins not palpable. MUSCULOSKELETAL: No obvious deformities. No clubbing. No cyanosis. No edema. NEUROLOGICAL: Awake and alert. No obvious cranial nerve deficits. Motor grossly within normal limits. Normal speech. PSYCHIATRIC: Appropriate mood and affect; insight and judgment normal. Data Data Last Documented VS Vital Signs Date Time Temp Pulse Resp B/P (MAP) Pulse Ox O2 Delivery O2 Flow Rate FiO2 03/20/18 16:09 70 20 113/68 (83) 95 03/20/18 14:39 98.0 Orders Orders Magnesium (Mg) (03/20/18 14:59) Complete Blood Count With Diff (03/20/18 14:59) Comprehensive Metabolic Panel (03/20/18 14:59) I-Stat Profile (03/20/18 15:10) Ed Discharge Order (03/20/18 16:55) Labs Laboratory Tests Test 03/20/18 15:10 White Blood Count 10.0 TH/MM3 Red Blood Count 4.18 MIL/MM3 Hemoglobin 12.8 GM/DL Bedside Hemoglobin G/DL Hematocrit 39.3 % Bedside Hematocrit % Mean Corpuscular Volume 93.8 FL Mean Corpuscular Hemoglobin 30.6 PG Mean Corpuscular Hemoglobin Concent 32.6 % Red Cell Distribution Width 12.4 % Platelet Count 255 TH/MM3 Mean Platelet Volume 8.2 FL Neutrophils (%) (Auto) 61.2 % Lymphocytes (%) (Auto) 28.6 % Monocytes (%) (Auto) 7.5 % Eosinophils (%) (Auto) 1.7 % Basophils (%) (Auto) 1.0 % Neutrophils # (Auto) 6.1 TH/MM3 Lymphocytes # (Auto) 2.9 TH/MM3 Monocytes # (Auto) 0.7 TH/MM3 Eosinophils # (Auto) 0.2 TH/MM3 Basophils # (Auto) 0.1 TH/MM3 CBC Comment DIFF FINAL Differential Comment Bedside Sodium 139 MMOL/L Blood Urea Nitrogen 36 MG/DL Creatinine 1.48 MG/DL Random Glucose 90 MG/DL Total Protein 6.8 GM/DL Albumin 3.5 GM/DL Calcium Level 8.4 MG/DL Magnesium Level 2.2 MG/DL Alkaline Phosphatase 99 U/L Aspartate Amino Transf (AST/SGOT) 23 U/L Alanine Aminotransferase (ALT/SGPT) 30 U/L Total Bilirubin 0.4 MG/DL Sodium Level 142 MEQ/L Potassium Level 3.9 MEQ/L Chloride Level 106 MEQ/L Carbon Dioxide Level 23.5 MEQ/L Bedside Potassium 3.8 MMOL/L Bedside Chloride 106 MMOL/L Anion Gap 13 MEQ/L Bedside Blood Urea Nitrogen 35 MG/DL Bedside Creatinine 1.5 MG/DL Estimat Glomerular Filtration Rate 34 ML/MIN Bedside Glucose 89 MG/DL [facility] Medical Decision Making Medical Screen Exam Complete: Yes Emergency Medical Condition: Yes Differential Diagnosis Generalized weakness, hypothyroidism, electrolyte imbalance Narrative Course 77-year-old female presents the ER for evaluation of generalized weakness. Patient is a history of meningioma 4 years ago that was surgically removed and she gets serial screening CAT scan yearly. Patient has no focal deficits but she complained of generalized weakness that she says could be her calcium since that she always have low calcium. Labs here are within normal limits, vitals are stable, physical examination reveals no abnormalities. I offered CAT scan of the head to rule out malignancy. Patient stated that she had the recent one and she did not want CAT scan meanwhile she says if her symptoms change she will come to the ER. 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 Patient vitals are stable and she is stable to be discharged. Laboratory Tests Test 03/20/18 15:10 White Blood Count 10.0 TH/MM3 Red Blood Count 4.18 MIL/MM3 Hemoglobin 12.8 GM/DL Bedside Hemoglobin G/DL Hematocrit 39.3 % Bedside Hematocrit % Mean Corpuscular Volume 93.8 FL Mean Corpuscular Hemoglobin 30.6 PG Mean Corpuscular Hemoglobin Concent 32.6 % Red Cell Distribution Width 12.4 % Platelet Count 255 TH/MM3 Mean Platelet Volume 8.2 FL Neutrophils (%) (Auto) 61.2 % Lymphocytes (%) (Auto) 28.6 % Monocytes (%) (Auto) 7.5 % Eosinophils (%) (Auto) 1.7 % Basophils (%) (Auto) 1.0 % Neutrophils # (Auto) 6.1 TH/MM3 Lymphocytes # (Auto) 2.9 TH/MM3 Monocytes # (Auto) 0.7 TH/MM3 Eosinophils # (Auto) 0.2 TH/MM3 Basophils # (Auto) 0.1 TH/MM3 CBC Comment DIFF FINAL Differential Comment Bedside Sodium 139 MMOL/L Blood Urea Nitrogen 36 MG/DL Creatinine 1.48 MG/DL Random Glucose 90 MG/DL Total Protein 6.8 GM/DL Albumin 3.5 GM/DL Calcium Level 8.4 MG/DL Magnesium Level 2.2 MG/DL Alkaline Phosphatase 99 U/L Aspartate Amino Transf (AST/SGOT) 23 U/L Alanine Aminotransferase (ALT/SGPT) 30 U/L Total Bilirubin 0.4 MG/DL Sodium Level 142 MEQ/L Potassium Level 3.9 MEQ/L Chloride Level 106 MEQ/L Carbon Dioxide Level 23.5 MEQ/L Bedside Potassium 3.8 MMOL/L Bedside Chloride 106 MMOL/L Anion Gap 13 MEQ/L Bedside Blood Urea Nitrogen 35 MG/DL Bedside Creatinine 1.5 MG/DL Estimat Glomerular Filtration Rate 34 ML/MIN Bedside Glucose 89 MG/DL Diagnosis Primary Impression: Weakness generalized Additional Instructions: Follow-up with primary care physician and return to your symptoms change or not improve. Disposition: 01 DISCHARGE HOME Condition: Stable Rashad Shea MD Mar 20, 2018 15:09
[2018-03-20 15:17] LABS: AUTOMATED NEUTROPHIL # 6.1 TH/MM3 (1.8-7.7); BASOPHIL # 0.1 TH/MM3 (0-0.2); EOSINOPHIL # 0.2 TH/MM3 (0-0.4); EOSINOPHIL % 1.7 % (0.0-4.0); HEMATOCRIT 39.3 % (35.0-46.0); HEMOGLOBIN 12.8 GM/DL (11.6-15.3); LYMPH % 28.6 % (9.0-44.0); LYMPHOCYTE # 2.9 TH/MM3 (1.0-4.8); MEAN CELL VOLUME 93.8 FL (80.0-100.0); MEAN CORPUSCULAR HEMOGLOBIN 30.6 PG (27.0-34.0); MEAN CORPUSCULAR HGB CONC 32.6 % (32.0-36.0); MEAN PLATELET VOLUME 8.2 FL (7.0-11.0); MONO % 7.5 % (0.0-8.0); MONOCYTE # 0.7 TH/MM3 (0-0.9); NEUT % 61.2 % (16.0-70.0); PLATELET COUNT 255 TH/MM3 (150-450); RED BLOOD COUNT 4.18 MIL/MM3 (4.00-5.30); RED CELL DISTRIBUTION WIDTH 12.4 % (11.6-17.2)
[2018-03-20 16:09] VITALS: BP 113/68; PULSE 70; RESP 20; O2SAT 95
[2018-03-20 16:40] LABS: ALBUMIN 3.5 GM/DL (3.4-5.0); ALT (GPT) 30 U/L (10-53); AST (GOT) 23 U/L (15-37); BICARBONATE 23.5 MEQ/L (21.0-32.0); BLOOD UREA NITROGEN 36 MG/DL (7-18); CALCIUM 8.4 MG/DL (8.5-10.1); CHLORIDE 106 MEQ/L (98-107); CREATININE 1.48 MG/DL (0.50-1.00); GLOMERULAR FILTRATION RATE 34 ML/MIN (>89); GLUCOSE,RANDOM 90 MG/DL (74-106); MAGNESIUM 2.2 MG/DL (1.5-2.5); SODIUM (NA) 142 MEQ/L (136-145)
[2018-03-20 16:42] LABS: ALKALINE PHOSPHATASE 99 U/L (45-117); TOTAL BILIRUBIN ADULT 0.4 MG/DL (0.2-1.0); TOTAL PROTEIN 6.8 GM/DL (6.4-8.2)
== END 2018-03-20 17:14 | disposition home or self-care (01) ==
LOC: PHED 14:38
DX: R53.1 Weakness (principal); D64.9 Anemia, unspecified; I10 Essential (primary) hypertension; K21.9 Gastro-esophageal reflux disease without esophagitis; M19.90 Unspecified osteoarthritis, unspecified site; F32.9 Major depressive disorder, single episode, unspecified; G62.9 Polyneuropathy, unspecified; Z79.899 Other long term (current) drug therapy; Z88.8 Allergy status to other drugs, medicaments and biological substances
CPT/HCPCS: 80048; 80053; 83735; 85025; 99283

== ENCOUNTER 2018-04-03 15:58 | Emergency (ER) | payer MEDICARE, BC ==
[~2018-04-03] VITALS: Ht 162.6 cm; Wt 61.5 kg
[~2018-04-03 15:58] MED LIST changes: -B COTAB3 PO; -FERR325C PO; -IRON; +OMEG1CAP28 PO; -SELE200T8 PO; +VITACAP7 PO; -ZOLE5P IV; +[UNRECOGNIZED DRUG - OTHER]; -[UNRECOGNIZED DRUG - OTHER] PO
[2018-04-03 16:02] VITALS: BP 136/65; PULSE 66; RESP 16; TEMP 97.8; O2SAT 98
[2018-04-03 16:19] VITALS: BP 121/74; PULSE 62; RESP 18; O2SAT 96
--- NOTE | 2018-04-03 17:17 | PD ---
HPI Chief Complaint: Edema Time Seen by Provider: 17:01 Travel History International Travel<30 days: No Contact w/Intl Traveler<30days: No Traveled to known affect area: No History of Present Illness HPI 77 y/o female with history of chronic LE edema L>R is presenting to the ED today for evaluation of worsened LLE edema and pain for 4 days, as well as redness and pain in R third toe for several weeks. The pain is mostly in the medial aspect of the ankle and at the MTP areas of the plantar aspect of the foot . Patient states that on occasion, her L leg turns purple/blue. She states her swelling and symptoms are worse at the end of the day and improve with elevation of her legs. She sees a neurologist routinely for neuropathy of undetermined origin. States she underwent venous ultrasound 2 weeks ago for swelling and that results were negative. She does not endorse a history of liver or cardiovascular disease other than a "leaky valve" for which she see's a clinical reviewer every 6 months--most recent visit revealed no problems. She denies injury to the area, a personal or family history of gout, claudication, shortness of breath, dizziness, cough, chest pain, fever, chills. 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[place], HEARING AIDS) Endocrine: No Gastrointestinal Disorders: Yes GERD: Yes Genitourinary: Yes (necrosis ) Hiatal Hernia: Yes (OPERATION RESOLVED GERD) Herniated Disk: Yes Hypertension: Yes Immune Disorder: No Implanted Vascular Access Dvce: Yes Musculoskeletal: Yes (FRACTURES) Neurologic: Yes (neuropathy) Psychiatric: Yes Reproductive: Yes (ENLARGED BLADDER AND SELF CATH'S SELF) Respiratory: No Migraines: No Myocardial Infarction: No Radiation Therapy: No Renal Failure: No Seizures: No Sickle Cell Disease: No Thyroid Disease: No Ulcer: No Influenza Vaccination: Yes ?: Not : 4 Para: 4 Past Surgical History Abdominal Surgery: Yes (GASTRIC DISTAL BYPASS 1991, HERNIA 2011) Appendectomy: Yes Body Medical Devices: titanium rods in head, layton in abdomen, HERNIA MESH Cholecystectomy: Yes Ear Surgery: No Endocrine Surgery: No Eye Surgery: Yes (BILAT CATARACTS) Genitourinary Surgery: Yes (bladder sling) Gynecologic Surgery: No Hysterectomy: Yes Neurologic Surgery: Yes (CRANIOTOTOMY 2013 WITH TITANIUM) Oral Surgery: Yes (TONSILLECTOMY) Tonsillectomy: Yes Other Surgery: Yes (L5-S1, R KNEE TORN MENISCUS) Family History Family Hypercholesterolemia: Yes Social History Alcohol Use: Yes (very rarely) Tobacco Use: No Substance Use: No Allergies-Medications (Allergen,Severity, Reaction): Coded Allergies: celecoxib (Verified Allergy, Severe, RENAL FAILURE, 04/03/18) *MDRO Multi-Drug Resistant Organism (Verified Allergy, Unknown, 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 desvenlafaxine (Verified Allergy, Unknown, 04/03/18) risedronate sodium (Verified Allergy, Unknown, 04/03/18) Reported Meds & Prescriptions Reported Meds & Active Scripts Active Reported [id number] Ethyl Esters 1 Gm Cap 2 Gm PO BID B Complex (B-Complex Vitamins) 1 Cap 1 Cap PO DAILY Tricitrates Liq (Potassium Citrate-Sod Citrate-Citric Acid Liq) 550-500-334 Mg/ 5 Ml Soln Centrum Silver Adult 50+ (Multiple Vitamins W/ Minerals) 1 Tab Tab 1 Tab PO DAILY Zinc (Zinc Gluconate) 50 Mg Tab Unknown Dose PO DAILY Zocor (Simvastatin) 10 Mg Tab 10 Mg PO DAILY Tramadol (Tramadol HCl) 50 Mg Tab 100 Mg PO BID Torsemide 20 Mg Tab 20 Mg PO DAILY Carvedilol 3.125 Mg Tab 3.125 Mg PO BID Lisinopril 2.5 Mg Tab 2.5 Mg PO DAILY Venlafaxine ER 24 HR (Venlafaxine HCl) 225 Mg Tab 225 Mg PO DAILY Climara Patch 168 HR (Estradiol) 0.025 Mg/24 Hr Patch 1 Patch TOPICAL Q7D Remove old patch and discard when placing a new patch. Ambien (Zolpidem Tartrate) 5 Mg Tab 5 Mg PO HS PRN Gabapentin 600 Mg Tab 600 Mg PO TID Citracal + Bone Density Tablet (Calcium Crb,Cit/D3/Min34/Luis) 1 Each Tablet 1 Tab PO TID Review of Systems Except as stated in HPI: all other systems reviewed are Neg Physical Exam Narrative GENERAL: Pleasant 77 y/o female who appears her stated age and is in NAD. SKIN: Warm and dry. Mild pallor noted. HEAD: Atraumatic. Normocephalic. EYES: Pupils equal and round. No scleral icterus. No injection or drainage. ENT: No nasal bleeding or discharge. Mucous membranes pink and moist. NECK: Trachea midline. No JVD. CARDIOVASCULAR: Regular rate and rhythm. RESPIRATORY: No accessory muscle use. Clear to auscultation. Breath sounds equal bilaterally. GASTROINTESTINAL: Abdomen soft, non-tender, nondistended. Hepatic and splenic margins not palpable. MUSCULOSKELETAL: Extremities without clubbing, cyanosis, or edema. Dorsalis pedis 2+ on R and 1+ on L. Mild, non-pitting edema evident below ankle on L associated with tenderness to palpation of medial aspect of ankle and MTP areas of plantar surface. Erythema and tenderness noted at 3rd toe on R, beginning at 2nd IP joint and extending distally. Otherwise no obvious deformities. NEUROLOGICAL: Awake and alert. No obvious cranial nerve deficits. Motor grossly within normal limits. Five out of 5 muscle strength in the arms and legs. Normal speech. PSYCHIATRIC: Appropriate mood and affect; insight and judgment normal. Data Data Last Documented VS Vital Signs Date Time Temp Pulse Resp B/P (MAP) Pulse Ox O2 Delivery O2 Flow Rate FiO2 04/03/18 16:19 62 18 121/74 (90) 96 Room Air 04/03/18 16:02 97.8 Orders Orders Complete Blood Count With Diff (04/03/18 17:01) Basic Metabolic Panel (Bmp) (04/03/18 17:01) Prothrombin Time / Inr (Pt) (04/03/18 17:01) Act Partial Throm Time (Ptt) (04/03/18 17:01) Toe (Min 2vws) (04/03/18 17:01) Foot, Complete (Ccw2amd) (04/03/18 17:01) Us Leg Venous Doppler Bilat (04/03/18 17:01) Ed Discharge Order (04/03/18 18:53) Labs Laboratory Tests Test 04/03/18 17:15 White Blood Count 7.7 TH/MM3 Red Blood Count 3.68 MIL/MM3 Hemoglobin 10.9 GM/DL Hematocrit 33.3 % Mean Corpuscular Volume 90.4 FL Mean Corpuscular Hemoglobin 29.6 PG Mean Corpuscular Hemoglobin Concent 32.8 % Red Cell Distribution Width 12.7 % Platelet Count 211 TH/MM3 Mean Platelet Volume 9.4 FL Neutrophils (%) (Auto) 53.9 % Lymphocytes (%) (Auto) 31.4 % Monocytes (%) (Auto) 11.7 % Eosinophils (%) (Auto) 2.5 % Basophils (%) (Auto) 0.5 % Neutrophils # (Auto) 4.1 TH/MM3 Lymphocytes # (Auto) 2.4 TH/MM3 Monocytes # (Auto) 0.9 TH/MM3 Eosinophils # (Auto) 0.2 TH/MM3 Basophils # (Auto) 0.0 TH/MM3 CBC Comment DIFF FINAL Differential Comment Prothrombin Time 10.1 SEC Prothromb Time International Ratio 1.0 RATIO Activated Partial Thromboplast Time 25.3 SEC Blood Urea Nitrogen 21 MG/DL Creatinine 1.00 MG/DL Random Glucose 85 MG/DL Calcium Level 8.5 MG/DL Sodium Level 140 MEQ/L Potassium Level 4.4 MEQ/L Chloride Level 103 MEQ/L Carbon Dioxide Level 30.6 MEQ/L Anion Gap 6 MEQ/L Estimat Glomerular Filtration Rate 54 ML/MIN [facility] Medical Decision Making Medical Screen Exam Complete: Yes Emergency Medical Condition: Yes Medical Record Reviewed: Yes Interpretation(s) Laboratory Tests Test 04/03/18 17:15 Red Blood Count 3.68 MIL/MM3 (4.00-5.30) Hemoglobin 10.9 GM/DL (11.6-15.3) Hematocrit 33.3 % (35.0-46.0) Monocytes (%) (Auto) 11.7 % (0.0-8.0) Blood Urea Nitrogen 21 MG/DL (7-18) Estimat Glomerular Filtration Rate 54 ML/MIN (>89) Last 24 hours Impressions Toe X-Ray 04/03/181700 Signed Impressions: CONCLUSION: Soft tissue swelling and mild DIP joint arthritis. Foot X-Ray 04/03/181700 Signed Impressions: CONCLUSION: Negative for acute process. Differential Diagnosis DVT versus dependent edema versus cellulitis versus arthritis Narrative Course Evaluation of the foot shows that she has some erythema over the third toe DIP area, and with symptoms going on for several weeks, and patient states that it actually feels better than it was, I think it is more likely to be gouty arthritis or osteoarthritis. X-rays confirm arthritis in that area. I am not suspecting a cellulitis in this case. Patient denies no significant calf tenderness, and is mostly foot edema. There are no tender areas I am not suspecting cellulitis in the feet either. Ultrasound shows no signs of DVT. At this point, it appears that much of this is chronic and my plan would be to release her with follow-up to primary care doctor. Return for any worsening in symptoms as needed. The plan has been discussed with her and she states understanding. 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
--- NOTE | 2018-04-03 17:34 | RADRPT ---
EXAM DATE: 04/03/2018 5:27 PM EDT AGE/SEX: 77 years / Female INDICATIONS: Left foot swelling for one week. No known trauma. CLINICAL DATA: This is the patient's initial encounter. Patient reports that signs and symptoms have been present for 1 week and indicates a pain score of 0/10. MEDICAL/SURGICAL HISTORY: None. None. COMPARISON: [facility], FOOT LEFT COMPLETE ([id number]), 06/11/2017. . FINDINGS: Bony structures are intact and in normal alignment. Osseous density is normal. Soft tissues are unre markable. No radiopaque foreign bodies seen. Calcification present in the calf probably an old madiha ous thrombus. CONCLUSION: Negative for acute process. Electronically signed by: Mando Mendoza MD 04/03/2018 5:33 PM EDT
--- NOTE | 2018-04-03 17:39 | RADRPT ---
EXAM DATE: 04/03/2018 5:28 PM EDT AGE/SEX: 77 years / Female INDICATIONS: Right foot, third digit redness and swelling for one week. No known trauma. CLINICAL DATA: This is the patient's initial encounter. Patient reports that signs and symptoms have been present for 1 week and indicates a pain score of 0/10. MEDICAL/SURGICAL HISTORY: None. None. COMPARISON: No prior exams available for comparison. FINDINGS: There are some arthritic changes involving the distal interphalangeal joint of the third toe. No defi nite fracture or destructive change. Soft tissues are diffusely swollen involving the toe. CONCLUSION: Soft tissue swelling and mild DIP joint arthritis. Electronically signed by: Kenan Canada MD 04/03/2018 5:38 PM EDT
[2018-04-03 17:43] LABS: CALCIUM 8.5 MG/DL (8.5-10.1)
[2018-04-03 17:44] LABS: BICARBONATE 30.6 MEQ/L (21.0-32.0)
[2018-04-03 17:54] LABS: AUTOMATED NEUTROPHIL # 4.1 TH/MM3 (1.8-7.7); BASOPHIL % 0.5 % (0.0-2.0); EOSINOPHIL # 0.2 TH/MM3 (0-0.4); EOSINOPHIL % 2.5 % (0.0-4.0); HEMATOCRIT 33.3 % (35.0-46.0); HEMOGLOBIN 10.9 GM/DL (11.6-15.3); LYMPH % 31.4 % (9.0-44.0); LYMPHOCYTE # 2.4 TH/MM3 (1.0-4.8); MEAN CELL VOLUME 90.4 FL (80.0-100.0); MEAN CORPUSCULAR HEMOGLOBIN 29.6 PG (27.0-34.0); MEAN CORPUSCULAR HGB CONC 32.8 % (32.0-36.0); MEAN PLATELET VOLUME 9.4 FL (7.0-11.0); MONO % 11.7 % (0.0-8.0); MONOCYTE # 0.9 TH/MM3 (0-0.9); NEUT % 53.9 % (16.0-70.0); PLATELET COUNT 211 TH/MM3 (150-450); RED BLOOD COUNT 3.68 MIL/MM3 (4.00-5.30); RED CELL DISTRIBUTION WIDTH 12.7 % (11.6-17.2); WHITE BLOOD COUNT 7.7 TH/MM3 (4.0-11.0)
[2018-04-03 17:57] LABS: PROTHROMBIN TIME - PATIENT 10.1 SEC (9.8-11.6)
[2018-04-03 19:11] VITALS: BP 143/75
--- NOTE | 2018-04-03 19:14 | RADRPT ---
EXAM DATE: 04/03/2018 6:48 PM EDT AGE/SEX: 77 years / Female INDICATIONS: Bilateral leg swelling. CLINICAL DATA: This is the patient's initial encounter. Patient reports that signs and symptoms have been present for 1 week and indicates a pain score of 9/10. MEDICAL/SURGICAL HISTORY: Hypertension. Arthritis. Osteoporosis. Cervical fractures. Hard of hearing. Neuropathy. Leaking valve. GERD. Hiatal hernia. Necrosis. Renal disease. Herniated disc. T onsillectomy. Cholecystectomy. Appendectomy. Bilateral cataract extractions with lens implants. Cr aniotomy with titanium. Gastric distal bypass. Hysterectomy. Bladder sling. Right rotator cuff surger y. Left wrist plate and screws. Lumbar laminectomy. Right knee torn meniscus. COMPARISON: [facility], US LEG BILATERAL VENOUS DOPPLER, 04/26/2017. . TECHNIQUE: Venous ultrasound of both lower extremities was performed from the inguinal ligament to t he proximal calf. Real-time, color Doppler and spectral tracing, compression and augmentation techni ques were used. FINDINGS: Right Leg: Normal compression of the deep venous system from the inguinal region to the proximal bernice f. No echogenic clot is seen. Normal response of the venous system to augmentation and respiration. Left Leg: Normal compression of the deep venous system from the inguinal region to the proximal calf . No echogenic clot is seen. Normal response of the venous system to augmentation and respiration. Other: None. CONCLUSION: No venous thrombosis is identified within the lower extremities. Electronically signed by: Kenan Chin MD 04/03/2018 7:13 PM EDT
== END 2018-04-03 19:42 | disposition home or self-care (01) ==
LOC: PHED 15:58
DX: M19.071 Primary osteoarthritis, right ankle and foot (principal); M79.674 Pain in right toe(s); M19.90 Unspecified osteoarthritis, unspecified site; D64.9 Anemia, unspecified; F32.9 Major depressive disorder, single episode, unspecified; H91.90 Unspecified hearing loss, unspecified ear; K21.9 Gastro-esophageal reflux disease without esophagitis; I10 Essential (primary) hypertension; Z90.710 Acquired absence of both cervix and uterus
CPT/HCPCS: 73630; 73660; 80048; 85025; 85610; 85730; 93970; 99285